=== PATIENT | female | born 1965 | race Two or more races ===

== ENCOUNTER 2020-08-02 09:28 | Outpatient (REF) | payer MEDICARE, MEDICAID, SELFPAY ==
[2020-08-02 10:10] LABS: Blood Urea Nitrogen 15 mg/dL (9-16); Estimated Glomerular Filt Rate > 60
== END 2020-08-02 09:29 | disposition home or self-care (01) ==
LOC: HO.MRI 09:28
PROVIDERS: Visit Provider Psychiatry & Neurology Neurology
DX: H46.9 Unspecified optic neuritis (principal)
CPT/HCPCS: 82565; 84520

== ENCOUNTER 2020-08-04 10:37 | Outpatient (REF) | payer MEDICARE, MEDICAID, SELFPAY ==
--- NOTE | 2020-08-04 10:36 | MR_ITS ---
EXAMINATION: MR BRAIN WITHOUT AND WITH CONTRAST CLINICAL INFORMATION: Optic neuropathy. COMPARISON: Head CT from 11/04/2019. TECHNIQUE: Multiplanar, multisequence imaging of the brain was performed before and after the intravenous administration of 10 mL of Gadavist. FINDINGS: No diffusion abnormalities are identified to suggest an acute or subacute infarct. The ventricles are normal in size. No mass effect or midline shift is seen. Mild to moderate chronic white matter microangiopathic changes noted. No extra-axial fluid collections are seen. The brainstem and cerebellum are normal. There is no abnormal parenchymal or leptomeningeal enhancement. The orbits and pituitary axis structures are grossly normal. The gradient refocused acquisition is normal. The craniovertebral junction, marrow signal, and midline structures are normal. The major intracranial flow voids at the level of the chitimacha of Hilario are preserved. The dural venous sinus flow voids are maintained. Moderate right-sided posterior ethmoid sinus mucosal disease. There is a trace amount of fluid in the left mastoid air cells. Nonenhancing 1 cm Tornwaldt cyst in the midline nasopharyngeal roof. MR/MR head/brain wo/w con IMPRESSION: Mild to moderate chronic white matter microangiopathic changes. No acute process. No abnormal enhancement.
== END 2020-08-04 10:38 | disposition home or self-care (01) ==
LOC: HO.MRI 10:37
PROVIDERS: PCP Internal Medicine Geriatric Medicine; Visit Provider Psychiatry & Neurology Neurology
DX: H46.9 Unspecified optic neuritis (principal)
CPT/HCPCS: 70553; A9585

== ENCOUNTER 2021-10-24 08:56 | Outpatient (REF) | payer MEDICARE, MEDICAID, SELFPAY ==
--- NOTE | ~2021-10-24 | XR_ITS ---
EXAMINATION: LUMBAR SPINE. LEFT SHOULDER. CLINICAL INFORMATION: Low back pain COMPARISON: None TECHNIQUE: Technique 6 views lumbar spine. 4 views left shoulder. FINDINGS: Lumbar spine: There is normal lumbar lordosis. The vertebral heights, alignment and disc heights are normal. No visible acute fracture, dislocation or subluxation seen. There is mild ventral spondylosis L3, L4 vertebra. No lytic or sclerotic process seen. On oblique views there is no pars defect or listhesis. The facet joints are symmetrical and normal. The SI joints are normal. Left shoulder: There is mild reduction in the glenohumeral joint space and AC joint space. No visible fracture or dislocation. No loose bodies. The soft tissues are normal. XR/XR shoulder LT min 2V IMPRESSION: Unremarkable lumbar spine exam. Mild degenerative changes suspected involving left shoulder joint. No visible acute fracture or dislocation seen.
--- NOTE | ~2021-10-24 | XR_ITS ---
EXAMINATION: LUMBAR SPINE. LEFT SHOULDER. CLINICAL INFORMATION: Low back pain COMPARISON: None TECHNIQUE: Technique 6 views lumbar spine. 4 views left shoulder. FINDINGS: Lumbar spine: There is normal lumbar lordosis. The vertebral heights, alignment and disc heights are normal. No visible acute fracture, dislocation or subluxation seen. There is mild ventral spondylosis L3, L4 vertebra. No lytic or sclerotic process seen. On oblique views there is no pars defect or listhesis. The facet joints are symmetrical and normal. The SI joints are normal. Left shoulder: There is mild reduction in the glenohumeral joint space and AC joint space. No visible fracture or dislocation. No loose bodies. The soft tissues are normal. XR/XR lumbar spine 4V min IMPRESSION: Unremarkable lumbar spine exam. Mild degenerative changes suspected involving left shoulder joint. No visible acute fracture or dislocation seen.
== END 2021-10-24 08:57 | disposition home or self-care (01) ==
LOC: HO.XRAY 08:56
PROVIDERS: PCP Internal Medicine Geriatric Medicine; Visit Provider Internal Medicine Geriatric Medicine
DX: M25.412 Effusion, left shoulder (principal); M54.50 Low back pain, unspecified
CPT/HCPCS: 72110; 73030

== ENCOUNTER 2021-11-08 12:40 | Outpatient (REF) | payer MEDICARE, MEDICAID, SELFPAY ==
--- NOTE | ~2021-11-08 | MR_ITS ---
EXAMINATION: MR SHOULDER WITHOUT CONTRAST, LEFT CLINICAL INFORMATION: Left shoulder pain and decreased range of motion for greater than 10 months. COMPARISON: Most recent left shoulder radiographs dated 10/24/2021. TECHNIQUE: Multisequence MR imaging of the left shoulder was obtained without contrast on a high-field strength scanner. FINDINGS: Evaluation limited secondary to patient motion. ROTATOR CUFF: Mild supraspinatus tendinosis with distal bursal surface fraying. Mild infraspinatus and subscapularis tendinosis. No measurable rotator cuff tendon tear. No muscle atrophy or fatty infiltration. BICEPS: Normal. CORACOACROMIAL ARCH: The undersurface of the acromion is curved with no subacromial spur. Moderate acromioclavicular osteoarthritis. Fluid and edema within the subacromial-subdeltoid bursa, consistent with mild bursitis. LABRUM/CAPSULE: No displaced labral tear. Intact joint capsule. GLENOHUMERAL JOINT/MARROW: Grossly intact articular cartilage. No evidence of acute osseous abnormality. MR/MR shoulder LT wo con IMPRESSION: 1. Mild supraspinatus tendinosis with distal bursal surface fraying. Mild infraspinatus and subscapularis tendinosis. No measurable or full-thickness rotator cuff tendon tear. 2. Moderate acromioclavicular osteoarthritis. 3. Mild subacromial-subdeltoid bursitis.
== END 2021-11-08 12:41 | disposition home or self-care (01) ==
LOC: HO.MRI 12:40
PROVIDERS: Visit Provider Internal Medicine Geriatric Medicine
DX: M25.512 Pain in left shoulder (principal)
CPT/HCPCS: 73221

== ENCOUNTER 2021-12-13 08:24 | Outpatient (REF) | payer MEDICARE, MEDICAID, SELFPAY ==
--- NOTE | ~2021-12-13 | MM_ITS ---
EXAMINATION: MM SCREENING DIGITAL BREAST TOMOSYNTHESIS, BILATERAL CLINICAL INFORMATION: Screening. Asymptomatic. Prior history right breast surgery 2018. The lifetime risk of breast cancer based on the Tyrer-Cuzick Model is 16%. COMPARISON: Mammography: 03/25/2019, 03/10/2019, 03/09/2018, 01/17/2017 TECHNIQUE: Digital breast tomosynthesis is performed in both the craniocaudal and mediolateral oblique views along with computer-aided detection (CAD). Synthesized 2D images are generated from the tomosynthesis. Additional bilateral CC views are provided. FINDINGS: There are scattered areas of fibroglandular density (ACR BI-RADS breast composition Category b). There is mild asymmetry of the breasts, right slightly larger, similar to prior studies. Breast parenchymal pattern borders on predominantly fatty. Background stromal and fibroglandular densities are stable. There is no interval mass or architectural abnormality. There are scattered round and punctate dermal calcifications again seen. No significant changes. MM/MM tomosynthesis screening BI IMPRESSION: No mammographic evidence of malignancy. ASSESSMENT: BI-RADS 2: Benign RECOMMENDATION: Routine annual mammography screening. This patient's information was entered into a reminder system with a target due date for their next mammogram.
== END 2021-12-13 08:25 | disposition home or self-care (01) ==
LOC: HO.MAMMO 08:24
PROVIDERS: Visit Provider Internal Medicine Geriatric Medicine
DX: Z12.31 Encounter for screening mammogram for malignant neoplasm of breast (principal)
CPT/HCPCS: 77063; 77067

== ENCOUNTER 2022-03-20 19:06 | Emergency (ER) | payer MEDICARE, MEDICAID, SELFPAY ==
[2022-03-20 19:09] VITALS: BP 154/83; PULSE 109; O2SAT 99
[2022-03-20 19:33] VITALS: BP 118/72; PULSE 98; RESP 18; TEMP 37.2; O2SAT 96; BMI 35.4
[2022-03-20 20:58] LABS: MANUAL DIFF FLAG NO
[2022-03-20 21:00] LABS: Basophils Percent Auto 0.3 % (0-2); Eosinophils Absolute Auto 0.2 X10*3/uL (0.0-0.4); Eosinophils Percent Auto 2.3 % (0-4); Hematocrit 41.8 % (37.0-47.0); Imm Gran Abs Auto 0.02 X10*3/uL (0.00-0.03); Imm Gran Pct Auto 0.2 % (0.0-0.4); Lymphocytes Absolute Auto 2.9 X10*3/uL (1.2-4.9); Lymphocytes Percent Auto 32.7 % (20-40); Mean Corpuscular HGB Conc 33.5 g/dl (31.0-35.0); Mean Corpuscular Hemoglobin 29.7 pg (27.0-33.0); Mean Corpuscular Volume 88.6 fL (80.0-98.0); Mean Platelet Volume 10.7 fL (9.4-12.3); Monocytes Absolute Auto 0.5 X10*3/uL (0.1-1.2); Monocytes Percent Auto 5.5 % (2-11); Neutrophils Absolute Auto 5.3 x10*3/uL (2.0-8.3); Platelet Count 217 X10*3/uL (160-400); Red Blood Count 4.72 X10*6/uL (4.20-5.50); Red Cell Distribution Width 12.3 % (11.0-16.0); White Blood Count 8.9 X10*3/uL (4.8-10.8)
[2022-03-20 21:23] LABS: Alanine Aminotransferase 22 U/L (0-31); Alkaline Phosphatase 124 U/L (39-117); Anion Gap 11 (12-20); Aspartate Amino Transferase 21 U/L (5-31); Bilirubin Direct 0.2 mg/dL (0.0-0.5); Bilirubin Total 0.4 mg/dL (0.0-1.0); Blood Urea Nitrogen 14 mg/dL (9-16); Calcium 9.3 mg/dL (8.4-10.2); Carbon Dioxide 29 mmol/L (22-29); Chloride 102 mmol/L (96-108); Creatinine Clr Calc Pharmacy 92.1; Estimated Glomerular Filt Rate > 60; Glucose Random 119 mg/dL (60-115); Lipase < 4 U/L (8-78); Sodium 138 mmol/L (135-145); Total Protein 7.5 g/dL (6.5-8.0)
== END 2022-03-21 01:15 | disposition left against medical advice (07) ==
LOC: HO.ED 03-21 01:09
PROVIDERS: Emergency Provider Emergency Medicine
DX: R11.2 Nausea with vomiting, unspecified (principal)
CPT/HCPCS: 36415; 80053; 82248; 83690; 85025; 99281; 99283

== ENCOUNTER 2022-03-21 10:22 | Emergency (ER) | payer MEDICARE, MEDICAID, SELFPAY ==
[2022-03-21 10:25] VITALS: BP 139/93; PULSE 100; RESP 18; TEMP 37.2; O2SAT 98; BMI 35.4
[2022-03-21 13:21] LABS: MANUAL DIFF FLAG NO
[2022-03-21 13:25] LABS: Basophils Absolute Auto 0.1 X10*3/uL (0.0-0.2); Basophils Percent Auto 0.6 % (0-2); Eosinophils Absolute Auto 0.2 X10*3/uL (0.0-0.4); Eosinophils Percent Auto 1.8 % (0-4); Hematocrit 43.3 % (37.0-47.0); Hemoglobin 14.4 g/dl (12.0-16.0); Imm Gran Abs Auto 0.02 X10*3/uL (0.00-0.03); Imm Gran Pct Auto 0.2 % (0.0-0.4); Lymphocytes Absolute Auto 2.6 X10*3/uL (1.2-4.9); Lymphocytes Percent Auto 30.4 % (20-40); Mean Corpuscular HGB Conc 33.3 g/dl (31.0-35.0); Mean Corpuscular Hemoglobin 29.5 pg (27.0-33.0); Mean Corpuscular Volume 88.7 fL (80.0-98.0); Mean Platelet Volume 10.8 fL (9.4-12.3); Monocytes Absolute Auto 0.5 X10*3/uL (0.1-1.2); Monocytes Percent Auto 5.3 % (2-11); Neutrophils Absolute Auto 5.4 x10*3/uL (2.0-8.3); Neutrophils Percent Auto 61.7 % (45-73); Platelet Count 228 X10*3/uL (160-400); Red Blood Count 4.88 X10*6/uL (4.20-5.50); Red Cell Distribution Width 12.4 % (11.0-16.0); White Blood Count 8.7 X10*3/uL (4.8-10.8)
[2022-03-21 13:42] LABS: Alanine Aminotransferase 19 U/L (0-31); Alkaline Phosphatase 128 U/L (39-117); Anion Gap 14 (12-20); Aspartate Amino Transferase 21 U/L (5-31); Bilirubin Total 0.5 mg/dL (0.0-1.0); Blood Urea Nitrogen 16 mg/dL (9-16); Calcium 9.3 mg/dL (8.4-10.2); Carbon Dioxide 24 mmol/L (22-29); Chloride 103 mmol/L (96-108); Creatinine Clr Calc Pharmacy 86.1; Estimated Glomerular Filt Rate > 60; Glucose Random 185 mg/dL (60-115); Potassium 4.5 mmol/L (3.3-5.1); Sodium 136 mmol/L (135-145); Total Protein 7.8 g/dL (6.5-8.0)
== END 2022-03-21 15:40 | disposition left against medical advice (07) ==
PROVIDERS: Emergency Provider Emergency Medicine; PCP Internal Medicine Geriatric Medicine
DX: R11.2 Nausea with vomiting, unspecified (principal)
CPT/HCPCS: 36415; 80053; 82248; 83690; 85025; 99281; 99283

== ENCOUNTER 2022-03-22 11:27 | Emergency (ER) | payer MEDICARE, MEDICAID, SELFPAY ==
[2022-03-22 11:45] VITALS: BP 130/66; PULSE 87; RESP 20; TEMP 37; O2SAT 96; BMI 35.4
[2022-03-22 13:53] LABS: MANUAL DIFF FLAG NO
[2022-03-22 13:55] LABS: Basophils Absolute Auto 0.1 X10*3/uL (0.0-0.2); Basophils Percent Auto 0.6 % (0-2); Eosinophils Absolute Auto 0.2 X10*3/uL (0.0-0.4); Hematocrit 42.6 % (37.0-47.0); Hemoglobin 14.5 g/dl (12.0-16.0); Imm Gran Abs Auto 0.02 X10*3/uL (0.00-0.03); Imm Gran Pct Auto 0.2 % (0.0-0.4); Lymphocytes Absolute Auto 2.7 X10*3/uL (1.2-4.9); Lymphocytes Percent Auto 32.6 % (20-40); Mean Corpuscular Hemoglobin 30.5 pg (27.0-33.0); Mean Corpuscular Volume 89.5 fL (80.0-98.0); Mean Platelet Volume 11.2 fL (9.4-12.3); Monocytes Absolute Auto 0.6 X10*3/uL (0.1-1.2); Monocytes Percent Auto 6.6 % (2-11); Neutrophils Absolute Auto 4.8 x10*3/uL (2.0-8.3); Platelet Count 213 X10*3/uL (160-400); Red Blood Count 4.76 X10*6/uL (4.20-5.50); Red Cell Distribution Width 12.1 % (11.0-16.0); White Blood Count 8.4 X10*3/uL (4.8-10.8)
[2022-03-22 14:15] LABS: Anion Gap 14 (12-20); Blood Urea Nitrogen 15 mg/dL (9-16); Calcium 8.9 mg/dL (8.4-10.2); Carbon Dioxide 25 mmol/L (22-29); Chloride 101 mmol/L (96-108); Creatinine Clr Calc Pharmacy 88.4; Estimated Glomerular Filt Rate > 60; Glucose Random 214 mg/dL (60-115); Potassium 4.4 mmol/L (3.3-5.1); Sodium 136 mmol/L (135-145)
[2022-03-22 16:49] LABS: Alanine Aminotransferase 22 U/L (0-31); Albumin Level 4.1 g/dL (3.5-5.0); Alkaline Phosphatase 132 U/L (39-117); Aspartate Amino Transferase 21 U/L (5-31); Bilirubin Direct 0.2 mg/dL (0.0-0.5); Bilirubin Total 0.6 mg/dL (0.0-1.0); Lipase < 4 U/L (8-78); Total Protein 7.7 g/dL (6.5-8.0)
== END 2022-03-22 20:03 | disposition left against medical advice (07) ==
PROVIDERS: Emergency Provider Emergency Medicine; PCP Internal Medicine Geriatric Medicine
DX: E86.0 Dehydration (principal); R11.10 Vomiting, unspecified
CPT/HCPCS: 36415; 80048; 80076; 83690; 85025; 99281; 99283

== ENCOUNTER 2023-04-22 10:49 | Outpatient (REF) | payer MEDICARE, MEDICAID, SELFPAY ==
--- NOTE | ~2023-04-22 | XR_ITS ---
EXAMINATION: XR ELBOW, RIGHT CLINICAL INFORMATION: Right elbow pain status post trauma on Friday COMPARISON: None available. TECHNIQUE: AP, lateral, and oblique views of the right elbow. FINDINGS: Mild spurring is seen off of the lateral margin of the coronoid process. Mild calcification is seen along the lateral margin of the joint. Possible small joint effusion. No overt acute fracture or dislocation. Mild soft tissue swelling. XR/XR elbow RT min 3V IMPRESSION: 1. Mild soft tissue swelling and possible small joint effusion. No overt acute fracture. 2. Mild degenerative changes as detailed above.
[2023-04-22 18:53] LABS: Influenza A PCR NEGATIVE (Negative); Influenza B PCR NEGATIVE (Negative); Resp Syncy Virus RNA Qual PCR NEGATIVE (Negative); SARS COV2 PCR INHOUSE NEGATIVE (Negative)
== END 2023-04-22 10:50 | disposition home or self-care (01) ==
LOC: HO.HHCX 10:49
PROVIDERS: Visit Provider Emergency Medicine
DX: R50.9 Fever, unspecified (principal); Z20.822 Contact with and (suspected) exposure to COVID-19; S59.901A Unspecified injury of right elbow, initial encounter
CPT/HCPCS: 0241U; 73080

== ENCOUNTER 2023-07-11 11:45 | Outpatient (REF) | payer MEDICARE, MEDICAID, SELFPAY ==
[2023-07-11 13:44] LABS: Alanine Aminotransferase 13 U/L (0-31); Albumin Level 3.8 g/dL (3.5-5.0); Alkaline Phosphatase 142 U/L (39-117); Anion Gap 11 (12-20); Aspartate Amino Transferase 19 U/L (5-31); Bilirubin Total 0.6 mg/dL (0.0-1.0); Blood Urea Nitrogen 10 mg/dL (9-16); Carbon Dioxide 29 mmol/L (22-29); Chloride 101 mmol/L (96-108); Cholesterol 160 mg/dL (<200); Estimated Glomerular Filt Rate > 60; Glucose Random 95 mg/dL (60-115); HDL Cholesterol 37 mg/dL (>40); LDL Cholesterol Calculated 105 mg/dL (<100); Sodium 137 mmol/L (135-145); Total Protein 7.9 g/dL (6.5-8.0); Triglycerides 90 mg/dL (<150)
[2023-07-11 14:09] LABS: Creatinine Urine 228.92 mg/dL; Microalbum/Creatinine Ratio Ur 47.6 ug/mg cr (<30)
[2023-07-11 14:36] LABS: H Pylori Breath Test Negative (Negative)
== END 2023-07-11 11:46 | disposition home or self-care (01) ==
LOC: HO.HHCL 11:45
PROVIDERS: Visit Provider Internal Medicine Geriatric Medicine
DX: E11.9 Type 2 diabetes mellitus without complications (principal); Z79.4 Long term (current) use of insulin; Z86.19 Personal history of other infectious and parasitic diseases
CPT/HCPCS: 36415; 80053; 80061; 82043; 82570; 83013

== ENCOUNTER 2023-07-28 11:51 | Outpatient (REF) | payer MEDICARE, MEDICAID, SELFPAY ==
[2023-07-28 13:50] LABS: Estimated Average Glucose 194 mg/dL; Hemoglobin A1c % 8.4 % (<6.0)
== END 2023-07-28 11:52 | disposition home or self-care (01) ==
LOC: HO.HHCL 11:51
PROVIDERS: Visit Provider Internal Medicine Geriatric Medicine
DX: E11.69 Type 2 diabetes mellitus with other specified complication (principal); Z79.4 Long term (current) use of insulin
CPT/HCPCS: 36415; 83036

== ENCOUNTER 2023-11-18 12:45 | Outpatient (AMB) | payer MEDICARE, MEDICAID, SELFPAY ==
[2023-11-18 13:04] VITALS: BP 136/80; PULSE 74; BMI 35.1
--- NOTE | 2023-11-18 13:04 | MHC.OFFVIS ---
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, chest pain Intake Note: New patient dx HTN c/o chest pain off an on since Nov Director Graphics Required: No Allergies naproxen [NAPROXEN] Allergy (Intermediate, Unverified 07/28/23 14:03) SWELLING,RASH, rash, rash Medication List - Last Reconciled 11/18/23 by Ab Todd MD aspirin 81 mg PO DAILY atorvastatin 40 mg PO DAILY bupropion HCl 300 mg PO DAILY clonazepam 1 mg PO TID PRN dulaglutide (Trulicity) mg subcut gabapentin 800 mg PO TID ibuprofen 600 mg PO BID PRN insulin aspart U-100 (Novolog FlexPen U-100 Insulin aspart) subcut insulin degludec (Tresiba FlexTouch U-200 insulin) units subcut insulin glargine (Lantus Solostar U-100 Insulin) units subcut ipratropium-albuterol 20-100 mcg/actuation (Combivent Respimat) 1 puff inhalation QID losartan 50 mg PO DAILY nicotine (polacrilex) 2 mg PO PRN zolpidem 10 mg PO BEDTIME PRN HPI HPI Comments History of Present Illness Details Thank you for referring remote in cardiology consultation today for management of cardiovascular risk factors and chest discomfort. She is a 58-year-old female with prior history of diabetes and diabetic neuropathy, hyperlipidemia, COPD chronic smoking issue. Since July she started noticing elevated blood pressure. She 1 time ended up coming to [facility] with symptoms of headache, diaphoresis and chest pressure and was noted to have markedly elevated blood pressure at 200 systolic. She was then observed at [facility] and till the blood pressure got better. Since then she has been tried on lisinopril therapy but did not affect blood pressure. 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 She says she walks a lot and occasionally when she has very long walk she would get chest pain. Also she would get chest pressure/tightness when her blood pressure is elevated. She has somewhat intolerance to medications. She unfortunately continues to smoke. Denies any prolonged palpitation irregular heartbeat. No lightheadedness, loss of consciousness. She does have symptoms of skipped heartbeats mostly at nighttime when she is resting. [facility] Surgical History H/O cervical spine surgery H/O colonoscopy H/O esophagogastroduodenoscopy Family History Father No problems noted. Mother CAD (coronary artery disease) CHF (congestive heart failure) Social History Patient Tobacco Use Status: Current everyday Tobacco user Review of Systems Const Denies chills, Denies daytime sleepiness, Denies fatigue, Denies fever(s), Denies frequent falls, Denies poor appetite, Denies snoring, Denies stops breathing during sleep, Denies weakness, Denies weight gain and Denies weight loss Eyes Denies loss of vision ENT Denies dizziness and Denies hearing loss Card Denies chest pain, Denies claudication, Denies leg edema, Denies lightheadedness, Denies palpitations, Denies dyspnea, Denies dyspnea on exertion and Denies orthopnea Resp Denies cough, Denies excessive phlegm production, Denies dyspnea, Denies dyspnea on exertion, Denies snoring and Denies wheezing GI Denies abdominal pain, Denies hematochezia, Denies change in bowel habits, Denies nausea and Denies vomiting Denies urinary frequency and Denies dysuria Musc Denies arthralgias, Denies muscle weakness, Denies numbness and Denies other (frequent falls) Skin/Breast Denies nail changes and Denies rash Neuro Denies Abnormal speech present, Denies dizziness, Denies frequent falls, Denies loss of vision, Denies memory loss, Denies numbness and Denies weakness Psych Denies depression and Denies memory loss Endo Denies fatigue and Denies palpitations Julian/Lymph Reports easy bruising and Reports other (anemia) Aller/Immun Denies wheezing Physical Exam Vital Signs: Last Vital Signs Pulse 74 11/18/23 13:04 BP 136/80 11/18/23 13:04 BMI result Body Mass Index 35.1 Const General: cooperative, comfortable, no acute distress, alert and awake Nutritional Appearance: obese Orientation/consciousness: patient oriented x3 Limitations: no limitations HEENT Head: Yes normocephalic and Yes atraumatic Neck Neck: Yes trachea midline, Yes supple and Yes no JVD Carotids: no bruits Resp Effort & Inspection: normal respiratory effort Auscultation: clear to auscultation bilaterally Cardio Jugular venous distension: no JVD Palpation: normal PMI Rate: regular rate Rhythm: regular rhythm Heart sounds: S1 normal heart sound present, S2 normal heart sound present, no click, no gallops, no murmurs and no rubs GI Auscultation: normal bowel sounds Skin General skin exam: no rashes or lesions noted Neuro General: patient oriented x3 and no focal motor deficits Speech: No Abnormal speech present Extrem General: Yes no clubbing, cyanosis or edema Office Procedures EKG Details: EKG shows normal sinus rhythm with poor R-wave progression most likely due to lead placement [id number], Complete Assessment & Plan Assessment & Plan (1) Chest pain: Code(s): R07.9 - Chest pain, unspecified Plan: Patient with episode of chest discomfort in the setting of elevated blood pressure. This could be just related subendocardial ischemia related to elevated blood pressure and/or given her multiple risk factors including premature coronary artery disease in her mother, hypertension, diabetes, hyperlipidemia smoking high likelihood of underlying obstructive coronary artery disease myocardial ischemia. This needs to be evaluated for. Will suggest exercise myocardial perfusion imaging to evaluate for the same. Further treatment based on the findings. Will also suggest echocardiogram to evaluate LV systolic and diastolic function to evaluate for hypertensive heart disease. She is having symptoms of intermittent palpitation which has suggestive PVCs although atrial fibrillation can not be ruled out. Will suggest a 7 day Holter monitor to further assess for the same. Meanwhile given her multiple risk factors I have strongly suggested her to abstain from smoking. She says she is trying. We discussed various strategies. She will try to participate in the same. She has not had adequate blood pressure control with still having elevated blood pressure in the morning time. I have advised to increase losartan to 50 mg b.i.d.. Advised to monitor blood pressure at home maintain a log. Stress mitigation strategies were discussed. Low-salt diet was discussed. Target goal blood pressure less than 130/84. Continue aggressive management diabetes and compliance with medication was discussed. Target goal hemoglobin A1c less than 7%. Target goal LDL less than 70 mg/dL and continue high-intensity statin therapy. Advised lipid panel in near future. Will follow up in the clinic after above-mentioned test. Thank you for allowing me to partake in the care Medications: New losartan 50 mg PO BID 60 tabs 5RF Coding Level of Care Code New Pt Level 4 (19186) Diagnoses Chest pain R07.9 CPT Codes EKG - CPT: 50074-[id number], Complete ([id number])
== END 2023-11-18 13:39 | disposition home or self-care (01) ==
PROVIDERS: PCP Internal Medicine Geriatric Medicine; Visit Provider Internal Medicine Cardiovascular Disease
DX: R07.9 Chest pain, unspecified (principal)
CPT/HCPCS: 93010; 99204

== ENCOUNTER → 2023-11-18 12:45 | Outpatient (BNVA) | payer MEDICARE, MEDICAID, SELFPAY | PROVIDERS: PCP Internal Medicine Geriatric Medicine; Visit Provider Internal Medicine Cardiovascular Disease | DX: R07.9 Chest pain, unspecified (principal); I10 Essential (primary) hypertension; R94.31 Abnormal electrocardiogram [ECG] [EKG] | CPT/HCPCS: 93005; 99202 ==

== ENCOUNTER → 2024-01-05 09:46 | Outpatient (REF) | payer MEDICARE, MEDICAID, SELFPAY | LOC: HO.CARD 09:46 | PROVIDERS: PCP Internal Medicine Geriatric Medicine; Visit Provider Internal Medicine Cardiovascular Disease | DX: Z13.89 Encounter for screening for other disorder (principal) ==

== ENCOUNTER → 2024-03-12 08:27 | Outpatient (REF) | payer MEDICARE, MEDICAID, SELFPAY ==
--- NOTE | ~2024-03-12 | NM_ITS ---
EXERCISE MYOCARDIAL PERFUSION STUDY INDICATION: Chest pain TECHNIQUE: The patient was brought in for an exercise perfusion study on 03/12/2024. Patient performed exercise as per Kaiden protocol and was injected 30 mCi of sestamibi once target heart rate was achieved. Images were obtained using the SPECT gamma camera interlaced with the gating device. Images were obtained in supine position. Resting perfusion study was performed on 03/18/2024. Patient was administered 30 mCi of sestamibi intravenously at rest. Images were then obtained in supine position. Images were processed with the software and compared side to side in short axis, horizontal long axis and vertical long axis views. Total DLP 104mGy-cm. FINDINGS: Raw images were reviewed. The stress perfusion study showed no significant perfusion abnormality. Both uncorrected as well as CT attenuation corrected images were reviewed. The gated study shows normal LV systolic function with calculated LVEF of 70%. LV cavity is normal in size. The gated study shows normal wall thickening and contraction of segments. Resting study shows no significant perfusion abnormality. Gating at rest reveals normal wall motion with ejection fraction at 72%. The findings are consistent with no clear reversible or fixed perfusion abnormality. PR/PR cardiolite stress test IMPRESSION: 1. Myocardial perfusion imaging study shows normal myocardial perfusion. 2. Gated LVEF is 70% during stress and 72% during rest. 3. Transient ischemic dilatation not present. EKG component of the test reported separately.
--- NOTE | 2024-03-12 08:32 | CA_ITS ---
Transthoracic Echocardiogram Patient (Last, First, Middle): Rayna Cavazos, Gender: Female Date of : 1965 Age: 58 Procedure Date: 03/12/2024 Procedure Type: Transthoracic Echocardiogram Location: OP Height: 160.02 cm Weight: 95.26 kg BSA: 1.97 m2 Heart Rate: 69 bpm BP: 130 / 60 mmHg Nail Kegger: RICCI Referring MD: Ab Todd MD Symptoms: R07.9 - Chest pain, unspecified Study Quality: Adequate ECG Rhythm: Sinus Conclusions: - Normal left ventricular size and systolic function. There is mildly increased left ventricular wall thickness. The visually estimated ejection fraction is between 60-65%. - The basal inferior segment is hypokinetic. - Normal right ventricular cavity size and systolic function. - Normal global longitudinal strain. Findings Left Ventricle Normal left ventricular size and systolic function. There is mildly increased left ventricular wall thickness. The visually estimated ejection fraction is between 60-65%. There is evidence of regional wall motion abnormalities. Diastolic function is normal for age. Wall Motion Rest Echo Findings The basal inferior segment is hypokinetic. Right Ventricle Normal right ventricular cavity size and systolic function. Atria The left atrium is normal in size. The right atrium is normal in size. Aortic Valve There is a normal trileaflet aortic valve. There is no aortic valve stenosis. There is no aortic valve regurgitation. Mitral Valve Normal mitral valve structure and function. There is no mitral valve regurgitation. There is no mitral valve stenosis. Pulmonic Valve The pulmonic valve is likely normal. Tricuspid Valve Normal tricuspid valve structure and function. There is no tricuspid valve regurgitation. Normal right atrial pressure. There is no evidence of pulmonary hypertension. Great Vessels All visible segments of the aorta are normal in size. The visualized portions of the pulmonary artery and branches are normal. Venous The inferior vena cava is normal in size and collapses greater than 50% with inspiration. Pericardium/Pleural There is no evidence of pericardial effusion. Prior Study Comparison No prior study available for comparison. Measurements 2D Linear Measurements IVSd: 1.10 0.6-0.9/0.6-1.0 cm LVIDd: 3.59 3.9-5.3/4.2-5.9 cm LVIDd Index: 1.82 2.4-3.2/2.2-3.1 cm/m2 LVIDs: 1.97 2.0-3.6 cm LVPWd: 1.12 0.7-1.1 cm LA Diam: 3.90 2.7-3.8/3.0-4.0 cm LAIDs Index: 1.98 1.5-2.3 cm/m2 LV Mass: 155.85 67-162/88-224 g LV Mass Index: 79.11 43-95/49-115 g/m2 LVOT Diam: 2.00 3.0+(-)1.3 cm 2D Systolic Function EF 4C: 68.50 >55% EF 2C: 57.20 >55% EF BiP: 64.80 >55% Mitral Valve MV Pk E: 1.03 MV PK A: 1.17 MV Decel Time: 292.00 E/A: 0.90 E'Lateral: 10.10 E'Medial: 7.94 E/E' Med: 13.00 E/E' Lat: 10.20 PHT: 86.00 MVA PHT: 2.56 Decel [place]: 3.52 Aortic Valve AoV Pk Luis: 1.41 AoV Mn Luis: 1.02 AoV VTI: 0.32 AoV Pk Grad: 8.00 Aov Mn Grad: 5.00 CANDIDA Cont.VTI: 2.71 LVOT LVOT Pk Luis: 1.07 LVOT Mn Luis: 0.80 LVOT VTI: 0.28 LVOT Pk Grad: 5.00 LVOT Mn Grad: 3.00 LVOT Diam: 2.00 LVOT Area: 3.14 Diastolic Function MV Pk E: 1.03 MV Pk A: 1.17 E/A: 0.90 E'Medial: 7.94 E/E' Med: 13.00 E' Laterial: 10.10 E/E' Lat: 10.20 Right Ventricle TAPSE (mm): 23.90 TVS' Luis: 12.40 Great Vessels Aorta Sinus of Valsalva: 3.30 2.0-3.5 cm Ao Asc: 3.10 2.1-3.4 cm Pulmonary Valve PV Pk Luis: 0.92 Peak PV Grad: 3.00 Updated in Other Vendor System with Status of Final Boogie Pierce MD electronically signed on 03/14/2024 12:46:38 PM with status of Final
--- NOTE | 2024-03-12 08:32 | HM_ITS ---
Conclusion: 1. Patient was monitored for total period of 3 days 2. Baseline was normal sinus rhythm with average heart of 85 beats per minute 3. Rare PACs and PVCs noted 4. One wide complex tachycardia run of 19 beats at 138 beats per minute noted most suggestive of nonsustained VT 5. Patient did not alyssia the counter but reported 1 event in the diary after the wait time MTDD
--- NOTE | 2024-03-12 08:32 | CA_ITS ---
Acquisition Time: 2024-03-12 09:36:22 Total Exercise Time: 00:05:30 Test Indications: Abnormal ECG CP Medications: SEE H Protocol: ASHLEY Max HR: 142 BPM 88% of Pred: 161 BPM Max BP: 164/068 mmHG Max Work Load: 7.0 METS Exercise stress test exercise 5 min 30 sec of Ashley protocol achieving 87% MPHR, without chest discomfort, with mild to moderate SOB, with isolated PVCs, with normotensive response to exercise, with out EKG changes.Breathing returned to normal with rest. Nuclear images pending. Test reviewed with Dr. Pierce Referred By: Ab Todd Overread By: Caitlin Gorman
== END ==
LOC: HO.CARD 08:27
PROVIDERS: PCP Internal Medicine Geriatric Medicine; Visit Provider Internal Medicine Cardiovascular Disease
DX: R07.9 Chest pain, unspecified (principal)
CPT/HCPCS: 78452; 93017; 93242; 93306; A9500

== ENCOUNTER → 2024-03-12 08:32 | Outpatient (BNV) | payer MEDICARE, MEDICAID, SELFPAY | PROVIDERS: PCP Internal Medicine Geriatric Medicine; Visit Provider Nurse Practitioner | DX: I49.1 Atrial premature depolarization (principal); I49.3 Ventricular premature depolarization | CPT/HCPCS: 78452; 93016; 93018; 93244; 93350 ==

== ENCOUNTER 2024-04-06 11:35 | Outpatient (AMB) | payer MEDICARE, MEDICAID, SELFPAY ==
--- NOTE | 2024-04-06 11:49 | A.OFFVIS_ITS ---
Vital Signs 04/06/24 11:50 Height 5 ft 3 in Weight 207 lb 3.752 oz BMI 36.7 BP 153/65 H Blood Pressure Location Lt brachial Position Sitting Pulse 77 Intake Visit Reasons: pre colonoscopy Intake Note: Rayna presents in the office as a colonoscopy screening. CC: Just due for a colonoscopy - no concerns. Installation Supervisor Required: No Allergies naproxen [NAPROXEN] Allergy (Intermediate, Unverified 04/06/24 11:51) SWELLING,RASH, rash, rash HPI HPI pre colonoscopy: Details: 58 year old? female here today for pre colonoscopy screening.? Patient was sent to us by his/her PCP.? Last colonoscopy was in 2014 and it was normal. Patient denies any gastrointestinal symptoms in the past or at present.? Denies any per anabel or family history of gastrointestinal disease or CRC.? Denies history of difficulty with sedation or anesthesia in the past.? Negative for history of sleep apnea.? Denies any history of cardiac, renal, pulmonary, or hepatic disease.?? No history of infectious? diseases like hepatitis A, B, C, HIV or tuberculosis.? Patient is on low-dose aspirin. Patient was evaluated by director quality systems for atypical chest pain with normal stress test as well as normal echo. Patient has not follow-up with director quality systems but was called and told that her stress test was normal. [facility] Surgical History H/O cervical spine surgery H/O colonoscopy H/O esophagogastroduodenoscopy Family History Father No problems noted. Mother CAD (coronary artery disease) CHF (congestive heart failure) Social History Patient Tobacco Use Status: Current everyday Tobacco user Review of Systems Const Denies weight gain and Denies weight loss ENT Reports no additional complaints, Denies dysphagia and Denies odynophagia Card Reports no additional complaints Resp Reports no additional complaints GI Denies abdominal pain, Denies belching, Denies melena, Denies bloating, Denies change in bowel habits, Denies dysphagia, Denies excessive flatus, Denies dyspepsia, Denies heartburn, Denies diarrhea, Denies loose stools, Denies nausea, Denies odynophagia and Denies vomiting Musc Reports no additional complaints Neuro Reports no additional complaints Psych Reports no additional complaints Endo Reports no additional complaints Physical Exam Vital Signs: Last Vital Signs Pulse 77 04/06/24 11:50 BP 153/65 H 04/06/24 11:50 BMI result Body Mass Index 36.7 Const General: healthy appearing and no acute distress Nutritional Appearance: obese Orientation/consciousness: patient oriented x3 Resp Effort & Inspection: normal respiratory effort, able to speak in complete sentences, no tracheal deviation and symmetric chest movement Auscultation: clear to auscultation bilaterally Cardio Rate: regular rate GI Inspection: Yes normal to inspection, No distended and Yes obesity Palpation (GI): Soft to palpation, not firm, nontender and No hepatosplenomegaly present Auscultation: normal bowel sounds General: Yes no CVA tenderness Back/Spine/Pelvis Back: no CVA tenderness Skin General skin exam: elasticity normal, turgor normal and dry skin Neuro General: patient oriented x3 Psych Appearance: grossly normal Mental Status: mental status grossly normal Assessment & Plan Assessment & Plan (1) Screen for colon cancer: Code(s): Z12.11 - Encounter for screening for malignant neoplasm of colon Plan Patient denies any GI, cardiac or respiratory symptoms.? As mentioned above in HPI patient was evaluated for atypical chest pain. Normal stress test and normal echocardiogram. Denies any issues with anesthesia in the past.? Denies any history of sleep apnea.? No history infectious diseases in the past or present.? Patient is on low-dose aspirin. No family or personal history of colon cancer.? Patient denies melena, hematochezia, unintentional weight loss or ribbon like stools.? Discussed at length the pre-procedure,? prep, diet & medications as well as what to expect prior, during and after the procedure.?? Stressed the importance of good bowel prep.? Recommended the use of Vaseline or Calmoseptine OTC & baby wipes with bowel movements to promote comfort.? ?Patient verbalizes understanding and agrees to plan of care.? She was given the opportunity to ask questions and all questions answered.? We will see her after the procedure.? Medications: New polyethylene glycol 3350 (Miralax) As directed by gastroenterology department at [facility] 238 grams PO ONCE 238 grams 0RF Z12.11 - Encounter for screening for malignant neoplasm of colon bisacodyl (Dulcolax (bisacodyl)) take 4 tabs at noon the day before your colonoscopy 20 mg (4 x 5 mg) PO ONCE 1 day 4 tabs 0RF Z12.11 - Encounter for screening for malignant neoplasm of colon Coding Level of Care Code New Pt Level 3 (96460) Diagnoses Screen for colon cancer Z12.11 Time Spent (min) 40 Comment 30 minutes spent with patient and additional 10 minutes spent reviewing her records
[2024-04-06 11:50] VITALS: BP 153/65; PULSE 77; BMI 36.7
== END 2024-04-06 12:39 | disposition home or self-care (01) ==
PROVIDERS: PCP Internal Medicine Geriatric Medicine; Visit Provider Nurse Practitioner Family
DX: Z01.818 Encounter for other preprocedural examination (principal); Z12.11 Encounter for screening for malignant neoplasm of colon
CPT/HCPCS: 99024

== ENCOUNTER → 2024-04-06 11:35 | Outpatient (BNVA) | payer MEDICARE, MEDICAID, SELFPAY | PROVIDERS: PCP Internal Medicine Geriatric Medicine; Visit Provider Nurse Practitioner Family | DX: Z01.818 Encounter for other preprocedural examination (principal) | CPT/HCPCS: 99212 ==

== ENCOUNTER 2024-04-20 13:03 | Outpatient (AMB) | payer MEDICARE, MEDICAID, SELFPAY ==
[2024-04-20 13:40] VITALS: BP 140/70; PULSE 65; BMI 37.6
--- NOTE | 2024-04-20 13:40 | A.OFFVIS_ITS ---
Vital Signs 04/20/24 13:40 Height 5 ft 3 in Weight 212 lb 8.41 oz BMI 37.6 BP 140/70 H Blood Pressure Location Rt brachial Position Sitting Pulse 65 Pulse Source Pulse Oximeter Intake Visit Reasons: f/u after testing/ discuss metoprolol Ui Ux Web Developer Required: No Accompanied by: Self / Same As Patient Allergies naproxen [NAPROXEN] Allergy (Intermediate, Unverified 04/06/24 11:51) SWELLING,RASH, rash, rash Medication List - Last Reconciled 04/20/24 by Ab Todd MD aspirin 81 mg PO DAILY atorvastatin 40 mg PO DAILY bisacodyl (Dulcolax (bisacodyl)) 20 mg (4 x 5 mg) PO ONCE 1 day bupropion HCl XL 300 mg PO DAILY clonazepam 1 mg PO TID PRN dulaglutide (Trulicity) mg subcut gabapentin 800 mg PO TID ibuprofen 600 mg PO BID PRN insulin aspart U-100 (Novolog FlexPen U-100 Insulin aspart) subcut insulin degludec (Tresiba FlexTouch U-200 insulin) units subcut insulin glargine (Lantus Solostar U-100 Insulin) units subcut ipratropium-albuterol 20-100 mcg/actuation (Combivent Respimat) 1 puff inhalation QID losartan 50 mg PO BID metoprolol succinate ER (Toprol XL) 25 mg PO DAILY polyethylene glycol 3350 (Miralax) 238 grams PO ONCE zolpidem 10 mg PO BEDTIME PRN HPI Comments Details: Rayna comes for follow-up. She denies any exertional chest pain or shortness of breath. Unfortunately she continues smoke but is trying to quit. Hemoglobin A1c also still is elevated uncontrolled diabetes. She also sometimes forgets to take her blood pressure medicines. Importance of compliance with medication was discussed. Occasionally has symptoms of palpitations. She said metoprolol makes her feel a little tired. She occasionally forgets to take it. Denies any lightheadedness, syncope. Blood pressure on today's exam is slightly elevated. [facility] Surgical History H/O cervical spine surgery H/O colonoscopy H/O esophagogastroduodenoscopy Family History Father No problems noted. Mother CAD (coronary artery disease) CHF (congestive heart failure) Social History Patient Tobacco Use Status: Current everyday Tobacco user Review of Systems Const Denies chills, Denies fatigue, Denies fever(s), Denies frequent falls, Denies weakness, Denies weight gain and Denies weight loss ENT Denies dizziness Card Denies chest pain, Denies leg edema, Denies lightheadedness, Denies palpitations, Denies dyspnea and Denies dyspnea on exertion Resp Denies cough, Denies dyspnea and Denies dyspnea on exertion GI Denies hematochezia Musc Denies abnormal gait, Denies muscle weakness, Denies numbness, Denies radiating pain into limb and Denies tingling Neuro Denies Abnormal speech present, Denies abnormal gait, Denies dizziness, Denies frequent falls, Denies numbness, Denies tingling and Denies weakness Endo Denies fatigue and Denies palpitations Physical Exam Vital Signs: Last Vital Signs Pulse 65 04/20/24 13:40 BP 140/70 H 04/20/24 13:40 BMI result Body Mass Index 37.6 Const General: cooperative, comfortable, no acute distress, alert and awake Nutritional Appearance: obese Orientation/consciousness: patient oriented x3 Limitations: no limitations HEENT Head: Yes normocephalic and Yes atraumatic Neck Neck: Yes trachea midline, Yes supple and Yes no JVD Carotids: no bruits Resp Effort & Inspection: normal respiratory effort Auscultation: clear to auscultation bilaterally Cardio Jugular venous distension: no JVD Palpation: normal PMI Rate: regular rate Rhythm: regular rhythm Heart sounds: S1 normal heart sound present, S2 normal heart sound present, no click, no gallops, no murmurs and no rubs GI Auscultation: normal bowel sounds Skin General skin exam: no rashes or lesions noted Neuro General: patient oriented x3 and no focal motor deficits Speech: No Abnormal speech present Extrem General: Yes no clubbing, cyanosis or edema Assessment & Plan Assessment & Plan (1) Chest pain: Code(s): R07.9 - Chest pain, unspecified Category: Medical Plan: Chest pain with multiple risk factors with negative myocardial perfusion im aging. Good prognosis with this was discussed although given uncontrolled risk factors high risk of cardiovascular events was discussed. She is advised that if she ever gets significant chest pain unrelieved still should seek emergency care. Generally continue aggressive risk factor modification. Importance of good blood pressure control was discussed. She understands. Complete smoking cessation advised. Continue aggressive management diabetes with goal hemoglobin A1c less than 7%. She is working on it. Aggressive lipid modification goal LDL less than 70 mg/dL needs to be pursued. Encouraged to increase activity level. Will follow up in the clinic if need be. Thank you for allowing me to partake in his care Coding Level of Care Code Est Pt Level 3 (87493) Diagnoses Chest pain R07.9
== END 2024-04-20 14:05 | disposition home or self-care (01) ==
PROVIDERS: PCP Internal Medicine Geriatric Medicine; Visit Provider Internal Medicine Cardiovascular Disease
DX: R07.9 Chest pain, unspecified (principal)
CPT/HCPCS: 99213

== ENCOUNTER → 2024-04-20 13:03 | Outpatient (BNVA) | payer MEDICARE, MEDICAID, SELFPAY | PROVIDERS: PCP Internal Medicine Geriatric Medicine; Visit Provider Internal Medicine Cardiovascular Disease | DX: R00.2 Palpitations (principal); R07.9 Chest pain, unspecified | CPT/HCPCS: 99212 ==

== ENCOUNTER 2025-05-17 11:33 | Outpatient (REF) | payer MEDICARE, MEDICAID, SELFPAY ==
[2025-05-17 13:20] LABS: MANUAL DIFF FLAG NO
[2025-05-17 13:22] LABS: Hematocrit 40.5 % (37.0-47.0); Hemoglobin 13.7 g/dl (12.0-16.0); Imm Gran Abs Auto 0.03 X10*3/uL (0.00-0.03); Imm Gran Pct Auto 0.3 % (0.0-0.4); Lymphocytes Absolute Auto 2.5 X10*3/uL (1.2-4.9); Mean Corpuscular HGB Conc 33.8 g/dl (31.0-35.0); Mean Corpuscular Hemoglobin 30.0 pg (27.0-33.0); Mean Corpuscular Volume 88.8 fL (80.0-98.0); NRBC Abs Auto 0.000 X10*3/uL (0.0-0.012); NRBC Pct Auto 0.0 /100WBC (0.0-0.2); Platelet Count 249 X10*3/uL (160-400); Red Blood Count 4.56 X10*6/uL (4.20-5.50); White Blood Count 9.7 X10*3/uL (4.8-10.8)
[2025-05-17 14:13] LABS: Alanine Aminotransferase 16 U/L (0-31); Albumin Level 3.9 g/dL (3.5-5.0); Alkaline Phosphatase 160 U/L (39-117); Anion Gap 10 (12-20); Aspartate Amino Transferase 23 U/L (5-31); Blood Urea Nitrogen 18 mg/dL (9-16); Calcium 8.8 mg/dL (8.4-10.2); Carbon Dioxide 28 mmol/L (22-29); Chloride 102 mmol/L (96-108); Cholesterol 139 mg/dL (<200); Estimated Glomerular Filt Rate > 60; HDL Cholesterol 29 mg/dL (>40); Potassium 4.4 mmol/L (3.3-5.1); Sodium 136 mmol/L (135-145); Total Protein 7.3 g/dL (6.5-8.0); Triglycerides 133 mg/dL (<150)
--- OUTSIDE RECORDS SUMMARY | 2025-05-17 15:43 | XMS_ITS | Encounter Summary ---
Author Organization [employer] Address [address] [facility] 7t [place] [address] Care Team Providers Care Tone Regulator Name Role Phone Name, Beltran LEACH Primary Care Provider [phone] Reason for Visit * Reason Onset Date Comments Med Refill 01/03/2023 Encounter Details Date Type Department Care Team ([facility] st Contact Info) Description 01/03/2023 Telephone [facility] MEDICINE [address] [place] [address] [phone] Name, MD Beltran [address] [place] [address] Med Refill Social History Tobacco Use Types Packs/Day Years Used Date Smoking Tobacco: Never Assessed Comments Unknown Sex and Gender Information Value Date Recorded Sex Assigned at Female 07/01/2022 10:15 AM EDT Legal Sex Female 10:15 AM EDT Gender Identity Female 07/01/2022 10:15 AM EDT Sexual Orientation Don't know 07/01/2022 10 :15 AM EDT documented as of this encounter Miscellaneous Notes * Telephone Encounter - Kiya Perez LPN - 01/03/2023 1:02 PM EDT Medication was sent to [facility] on 12/20/22 with 5 refills. * Telephone Encounter - Sabrina Buchanan - 01/03/2023 11:52 AM EDT Tc from pt requesting med refill for medication insulin degludec (Tresiba) 100 UNIT/ML injection. documented in this encounter Plan of Treatment Upcoming Encounters Date Type Department Care Team (Late st Contact Info) Description 05/18/2025 9:30 AM EDT Office Visit [facility] MEDICINE [address] [place] [address] Name, MD Beltran [address] [place] [phone] documented as of this encounter Visit Diagnoses Not on filedocumented in this encounter Care Teams Tone Regulator Relationship Specialty Start Date End Date Name, MD Beltran [address] [place] [phone] PCP - General Family Medicine 12/05/15 documented as of this encounter
--- OUTSIDE RECORDS SUMMARY | 2025-05-17 15:43 | XMS_ITS | Encounter Summary ---
Author Organization [employer] Address [address] [place] [address] 7 [place] [address] Care Team Providers Care Licensed Psychologist Manager Name Role Phone NameBeltran MD Primary Care Provider [phone] Encounter Details Date Type Department Care Team (Late Contact Info) Description 01/24/2023 [facility] Health Information Management [address] [place] [address] Beltran Ramirez MD [address] [place] [phone] Social History Tobacco Use Types Packs/Day Years Used Date Smoking Tobacco: Never Assessed Comments Unknown Sex and Gender Information Value Date Recorded Sex Assigned at Female 07/01/2022 10:15 AM EDT Legal Sex Female 10:15 AM EDT Gender Identity Female 07/01/2022 10:15 AM EDT Sexual Orientation Don't know 07/01/2022 10 :15 AM EDT documented as of this encounter Plan of Treatment Upcoming Encounters Date Type Department Care Team (Late Contact Info) Description 05/18/2025 9:30 AM EDT Office Visit [facility] MEDICINE [address] [place] [address] Beltran Ramirez MD [address] [place] [address] documented as of this encounter Visit Diagnoses Not on filedocumented in this encounter Care Teams Licensed Psychologist Manager Relationship Specialty Start Date End Date Beltran Ramirez MD [address] [place] [address] [phone] PCP - General Family Medicine 12/05/15 documented as of this encounter
--- OUTSIDE RECORDS SUMMARY | 2025-05-17 15:43 | XMS_ITS | Encounter Summary ---
Author Organization [employer] Address [address] [facility] 7t [place] [address] Care Team Providers Care Cultured Marble Products Maker Name Role Phone Name, Beltran LEACH Primary Care Provider [phone] Encounter Details Date Type Department Care Team (Late Contact Info) Description 02/11/2023 Abstract [facility] MEDICINE [address] [place] [phone] Beltran Ramirez MD [address] [place] [phone] Social History Tobacco Use Types Packs/Day Years [...] Description 05/18/2025 9:30 AM EDT Office Visit [facility] MEDICINE [address] [place] [phone] Beltran Ramirez MD [address] [place] [phone] documented as of this encounter Visit Diagnoses Not on filedocumented in this encounter Care Teams Cultured Marble Products Maker Relationship Specialty Start Date End Date Beltran Ramirez MD [address] [place] [phone] PCP - General Family Medicine 12/05/15 documented as of this encounter
--- OUTSIDE RECORDS SUMMARY | 2025-05-17 15:43 | XMS_ITS | Encounter Summary ---
Author Organization [employer] Address [address] [facility] 7t [place] [address] Care Team Providers Care Home School Liaison Officer Name Role Phone Name, Beltran LEACH Primary Care Provider [phone] Reason for Visit * Reason Comments Med Refill Encounter Details Date Type Department Care Team ([facility] st Contact Info) Description 05/14/2025 Refill [facility] MEDICINE [address] [place], [place] [phone] Name, MD Beltran [address] [place] [address] Social History Tobacco Use Types Packs/Day Years Used Date Smoking Tobacco: Every Day Cigarettes Alcohol Use Standard Drinks/Week Comments Never 0 (1 standard drink = 0.6 oz pur e alcohol) Depression Answer Date Recorded Patient Health Questionnaire-9 Score 0 04/11/2023 Housing Stability Answer Date Recorded What is your housing situation today? I have oral ro 10/20/[address] you li ve. Do you have problems with any of the following? None of the above 10/20/2024 Food Insecurity Answer Date Recorded Within the past 12 months, y ou worried that your food would run out before you got money to buy more: Never True 10/20/2024 Within the past 12 months,th e food you bought just didn't last and you didn't have enough money to get more: Never True Transportation Answer Date Recorded In the past 12 months, has l ack of transportation kept you from medical appts, meetings, work or from getting things needed for daily living? No 10/20/2024 Utilities Answer Date Recorded In the past 12 months, has t he electric, gas, oil or water company threatened to shut off services in your home? No 10/20/2024 Depression Answer Date Recorded Patient Health Questionnaire-2 Score 0 04/11/2023 Internet Access Answer Date Recorded Internet Access Q1 Yes 10/20/2024 Internet Access Q2 Not on file 10/20/2024 Comments Unknown Sex and Gender Information Value [...] Description 05/18/2025 9:30 AM EDT Office Visit [facility] MEDICINE [address] [place] [address] NameBeltran MD [address] [place] [address] documented as of this encounter Visit Diagnoses Not on filedocumented in this encounter Additional Health Concerns Assessment Noted Time PHQ-9 Depression Total Score: 0 04/11/20 23 10:05 AM EDT documented as of this encounter Care Teams Home School Liaison Officer Relationship Specialty Start Date End Date NameBeltran MD [address] [place] [phone] PCP - General Family Medicine 12/05/15 documented as of this encounter
--- OUTSIDE RECORDS SUMMARY | 2025-05-17 15:43 | XMS_ITS | Encounter Summary ---
Author Organization [employer] Address [address] [facility] [address] 7[address] [place] [address] Care Team Providers Care Social Problems Specialist Name Role Phone Name, Beltran LEACH Primary Care Provider [phone] Reason for Visit * Reason Onset Date Comments CHART PREP 05/17/2025 Encounter Details Date Type Department Care Team ([facility] st Contact Info) Description 05/17/2025 Telephone [facility] MEDICINE [address] [place], [place] [phone] Enrique Sims [place] CHART PREP Social History Tobacco Use Types Packs/Day Years [...] encounter Miscellaneous Notes * Telephone Encounter - Enrique Sims [place] - 05/17/2025 10:48 AM EDT Chart Prep Labs: not done Images: done Referrals: not applicable Vaccines due: Covid, Flu, PCV20, Tdap, Td, RSV, Zoster, and DTAP Screenings: colonoscopy, pap smear, and eye exam Overdue care gaps: A1c, Glucose, SBIRT, PHQ-9, CHIOMA-7, and Disability screen documented in this encounter Plan of Treatment Upcoming Encounters Date Type Department Care Team (Late st Contact Info) Description 05/18/2025 9:30 AM EDT Office Visit [facility] MEDICINE [address] [place] [address] NameBeltran MD [address] [place] [address] documented as of this encounter Visit Diagnoses Not on filedocumented in this encounter Additional Health Concerns Assessment Noted Time PHQ-9 Depression Total Score: 0 04/11/20 23 10:05 AM EDT documented as of this encounter Care Teams Social Problems Specialist Relationship Specialty Start Date End Date Name, MD Beltran [address] [place] [phone] PCP - General Family Medicine 12/05/15 documented as of this encounter
--- OUTSIDE RECORDS SUMMARY | 2025-05-17 15:43 | XMS_ITS | Encounter Summary ---
Author Organization [employer] Address [address] [facility] 7t [place] [address] Care Team Providers Care Automatic Mounter Name Role Phone Name, Beltran LEACH Primary Care Provider [phone] Reason for Visit * Reason Comments Med Refill Encounter Details Date Type Department Care Team ([facility] Contact Info) Description 02/19/2024 Refill [facility] MEDICINE [address] [place], [place] [phone] Name, MD Beltran [address] [place] [address] Cervical radiculopathy Social History Tobacco Use Types Packs/Day Years Used Date Smoking Tobacco: Every Day Cigarettes Alcohol Use Standard Drinks/Week Comments Never 0 (1 standard drink = 0.6 oz pur e alcohol) Depression Answer Date Recorded Patient Health Questionnaire-9 Score 0 04/11/2023 Housing Stability Answer Date Recorded What is your housing situation today? I have oralfarnaz ro 06/19/[address] you li ve. Do you have problems with any of the following? None of the above 06/19/2023 Food Insecurity Answer Date Recorded Within the past 12 months, y ou worried that your food would run out before you got money to buy more: Sometimes True 2023 Within the past 12 months,th e food you bought just didn't last and you didn't have enough money to get more: Sometimes True 09/17/2023 Transportation Answer Date Recorded In the past 12 months, has l ack of transportation kept you from medical appts, meetings, work or from getting things needed for daily living? Yes, it has kept me from medical appointments or getting medications. 09/17/2023 Utilities Answer Date Recorded In the past 12 months, has t he electric, gas, oil or water company threatened to shut off services in your home? Yes 06/08/2023 Depression Answer Date Recorded Patient Health Questionnaire-2 Score 0 04/11/2023 Comments Unknown Sex and Gender Information Value [...] Description 05/18/2025 9:30 AM EDT Office Visit [facility] MEDICINE [address] [place] [phone] Name, MD Beltran [address] [place] [address] documented as of this encounter Visit Diagnoses Diagnosis Cervical radiculopathy Brachial neuritis or radiculitis nos documented in this encounter Additional Health Concerns Assessment Noted Time PHQ-9 Depression Total Score: 0 04/11/20 23 10:05 AM EDT documented as of this encounter Care Teams Automatic Mounter Relationship Specialty Start Date End Date NameBeltran MD [address] [place] [phone] PCP - General Family Medicine 12/05/15 documented as of this encounter
--- OUTSIDE RECORDS SUMMARY | 2025-05-17 15:44 | XMS_ITS | Encounter Summary ---
Author Organization [employer] Address [address] [facility] 7t [place] [address] Care Team Providers Care Press Writer Name Role Phone Name, Beltran LEACH Primary Care Provider [phone] Reason for Visit * Reason Onset Date Comments Nurse Triage 08/20/2023 Encounter Details Date Type Department Care Team ([facility] st Contact Info) Description 08/20/2023 Telephone [facility] MEDICINE [address] [place], [place] [phone] Name, MD Beltran [address] [place] [address] Nurse Triage Social History Tobacco Use Types Packs/Day Years Used Date Smoking Tobacco: Every Day Cigarettes Alcohol Use Standard Drinks/Week Comments Never 0 (1 standard drink = 0.6 oz pur e alcohol) Depression Answer Date Recorded Patient Health Questionnaire-9 Score 0 04/11/2023 Housing Stability Answer Date Recorded What is your housing situation today? I have oral ro 06/19/[address] you li ve. Do you have problems with any of the following? None of the above 06/19/2023 Food Insecurity Answer Date Recorded Within the past 12 months, y ou worried that your food would run out before you got money to buy more: Never True 06/19/2023 Within the past 12 months,th e food you bought just didn't last and you didn't have enough money to get more: Never True Transportation Answer Date Recorded In the past 12 months, has l ack of transportation kept you from medical appts, meetings, work or from getting things needed for daily living? No 06/19/2023 Utilities Answer Date Recorded In the past [...] encounter Miscellaneous Notes * Telephone Encounter - Cecille Meza RN - 08/20/2023 11:53 AM EST Triage call Pt reports went to psychiatrist for med refills yesterday and BP was 154/88 Pt was advised to follow up with PCP. Pt had had headache, nausea and vomiting the night before 08/18/23. Pt reports continues to have nausea but headache is subsided. Pt was started on increased dose of lisinopril 07/28/23 (10mg) and has been taking daily before bed. Pt BP at time of call is 118/92 and BS this morning was 154. Pt reports drinking adequate fluids. Pt does have an apt with PCP 09/24/23. Pt is advised to come to [facility] to see provider and have BP and BS checked . Pt will come in the morning 08/21/23. Pt agrees with disposition and is advised to keep a written record of BS and BP every morning a nd evening to bring to the MD apt 09/24/23. Pt agrees to do this for better information if adjustment of BP med is needed. Protocol Used: Blood Pressure - High (Adult) Protocol-Based Disposition: See in Office or Video Visit within 2 Weeks Video visit not offered Positive Triage Question: * Systolic BP >= 130 OR Diastolic >= 80, and history of heart problems, kidney disease, or diabetes mellitus * All higher-acuity triage questions were negative Care Advice Discussed: * High Blood Pressure * High Blood Pressure - Lifestyle Modifications * How to Check Your Blood Pressure? * Reasons To Call Back - Headache, blurred vision, difficulty talking, or difficulty walking occurs - Chest pain or difficulty breathing occurs - You want to go into the office for a blood pressure check - You become worse * Telephone Encounter - Virginia Mayo - 08/20/2023 11:05 AM EST Symptom: High Blood Pressure - Caller Reports Outcome: Schedule an urgent appointment (within 1 hour) or talk to a nurse or provider soon Reason: Getting worse The caller accepted this outcome Please contact pt @ [phone] documented in this encounter Plan of Treatment Upcoming Encounters Date Type Department Care Team (Late st Contact Info) Description 05/18/2025 9:30 AM EDT Office Visit [facility] MEDICINE [address] [place] [phone] Name, MD Beltran [address] [place] [phone] documented as of this encounter Visit Diagnoses Not on filedocumented in this encounter Additional Health Concerns Assessment Noted Time PHQ-9 Depression Total Score: 0 04/11/20 10:05 AM EDT documented as of this encounter Care Teams Press Writer Relationship Specialty Start Date End Date Name, MD Beltran [address] [place] [phone] PCP - General Family Medicine 12/05/15 documented as of this encounter
--- OUTSIDE RECORDS SUMMARY | 2025-05-17 15:44 | XMS_ITS | Encounter Summary ---
Author Organization [employer] Address [address] [facility] 7t [place] [address] Care Team Providers Care Beam Racker Name Role Phone Name, Beltran LEACH Primary Care Provider [phone] Reason for Visit * Reason Comments Med Refill Encounter Details Date Type Department Care Team ([facility] st Contact Info) Description 06/27/2023 Refill [facility] MEDICINE [address] [place], [place] [phone] Name, MD Beltran [address] [place] [address] Social History Tobacco Use Types Packs/Day Years [...] 05/18/2025 9:30 AM EDT Office Visit [facility] MEDICINE [address] [place] [phone] Name, MD Beltran [address] [place] [phone] documented as of this encounter Visit Diagnoses Not on filedocumented in this encounter Additional Health Concerns Assessment Noted Time PHQ-9 Depression Total Score: 0 04/11/20 23 10:05 AM EDT documented as of this encounter Care Teams Beam Racker Relationship Specialty Start Date End Date Name, MD Beltran [address] [place] [phone] PCP - General Family Medicine 12/05/15 documented as of this encounter
--- OUTSIDE RECORDS SUMMARY | 2025-05-17 15:44 | XMS_ITS | Clinical Summary ---
Author Organization [employer] Address [address] [facility] 7t [place] [address] Care Team Providers Care Newspaper Inserter Name Role Phone Name, Beltran LEACH Primary Care Provider [phone] Allergies Active Allergy Reactions Criticality Noted Date Comments Naproxen High 05/18/2014 Other reaction(s): rash and swelling Medications loperamide (Imodium) 2 MG capsule Take 2 capsules by mouth. 019 Active meclizine (Antivert) 25 MG tablet Take 1 tablet by mouth every 8 (eight) hours. 015 Active valACYclovir (Valtrex) 1 g tablet Take 1 tablet by mouth every 8 (eight) hours. 022 Active Alcohol Swabs (Alcohol Prep) pads Use prior to insulin injections and glucose checks Active Nebulizer misc Use as directed with duoneb and albuterol Active Blood Glucose Monitoring Suppl (FreeStyle glucose monitoring) kit 1 each if needed. Active buPROPion XL (Wellbutrin XL) 300 MG 24 hr tablet Take 1 tablet by mouth in the morning. 023 Active clonazePAM (KlonoPIN) 1 MG tablet TAKE 1 TABLET BY MOUTH THREE TIMES DAILY NEEDED 023 Active zolpidem (Ambien) 10 MG tablet Take 10 mg by mouth if needed at bedtime. 023 Active TRUEplus Lancets 33G miscIndications:T ype 2 diabetes mellitus with hyperglycemia (CMS/HCC) TEST BLOOD SUGAR THREE TIMES DAILY 200 each 5 023 Active Novofine Pen Needle 32G X 6 MM misc USE FOUR TIMES DAILY WITH INSULIN 100 each 3 023 Active nicotine (Nicoderm CQ) 21 MG/24HR patch Place 1 patch on the skin 1 (one) time each day at the same time. 30 patch 2 023 Active Spacer/Aero-Holdi ng Chambers (OptiChamber Brenda) misc 1 each every 4 (four) hours if needed (asthma). 1 each 023 Active losartan (Cozaar) 50 MG tablet Take 1 tablet (50 mg) by mouth in the morning. 30 tablet Active FreeStyle lancetsIndication s:Polyneuropathy due to type 2 diabetes mellitus (CMS/HCC) 1 each by Other route 3 times daily. 100 each Active pen needle 32G x 4 mm misc Use four times per day with insulinInject under the skin. Use four times per day with insulin 100 each Active metoprolol succinate XL (Toprol-XL) 25 MG 24 hr tablet Take 25 mg by mouth Once per day. Active chlorhexidine (Peridex) 0.12 % solution Swish 15 mL morning and night for 1 minute. Spit, do not swallow. Do not eat or drink for 30 minutes following use. 473 mL Active omeprazole (PriLOSEC) [address] capsuleIndication s:Type 2 diabetes mellitus without complication, with long-term current use of insulin (CMS/[facility]) Take 1 capsule (20 mg) by mouth Once per day. Take 1 capsul by oral route every day 30 minutes to 1 hour before a meal 30 capsule 2 025 2025 Active atorvastatin (Lipitor) 40 MG tablet TAKE 1 TABLET BY MOUTH EVERY DAY AT BEDTIME 90 tablet 1 Active Trulicity 0.75 MG/0.5ML solution auto-injector INJECT ONE PEN (=0.75MG) SUBCUTANEOUSLY ONCE A WEEK DIRECTED 2 mL Active Tresiba FlexTouch 100 UNIT/ML injection INJECT 48 UNITS SUBCUTANEOUSLY ONCE DAILY 15 mL Active albuterol (Ventolin HFA) 108 (90 Base) MCG/ACT inhaler INHALE 2 PUFFS BY MOUTH EVERY 4 HOURS NEEDED FOR WHEEZING OR SHORTNESS OF BREATH 18 g 1 Active aspirin (Aspirin Low Dose) 81 MG EC tabletIndications :Diabetic polyneuropathy associated with type 2 diabetes mellitus (CMS/HCC) Take 1 tablet (81 mg) by mouth Once per day. 90 tablet 3 025 Active Combivent Respimat 20-100 MCG/ACT inhaler INHALE 1 PUFF BY MOUTH EVERY 6 HOURS NEEDED FOR WHEEZING, RINSE MOUTH AFTER USING. 4 g 1 025 Active glucose blood (FREESTYLE LITE) test stripIndications: Type 2 diabetes mellitus with hyperglycemia (CMS/HCC) USE DIRECTED TO TEST BLOOD SUGAR THREE TIMES DAILY DIRECTED 100 strip 5 025 Active gabapentin (Neurontin) 800 MG tabletIndications :Cervical radiculopathy TAKE 1 TABLET BY MOUTH THREE TIMES DAILY 90 tablet 3 025 Active insulin aspart FlexPen (NovoLOG) 100 UNIT/ML pen INJECT 10 UNITS SUBCUTANEOUSLY EVERY MORNING, 15 UNITS WITH LUNCH, AND 20 UNITS WITH DINNER 15 mL 3 025 Active insulin aspart FlexPen (NovoLOG) 100 UNIT/ML pen INJECT 10 UNITS SUBCUTANEOUSLY EVERY MORNING, 15 UNITS WITH LUNCH, AND 20 UNITS WITH DINNER 15 mL 3 025 2024 Discontinued Active Problems Problem Noted Date Diagnosed Date Periodontal disease 09/08/2024 Dental caries 09/08/2024 Dental abscess 08/30/2024 Other chest pain 07/29/2023 Assessment & Plan (07/29/2023 2:34 PM EST): Resolved, occurred on day prior to presentation Pt declines visit to ER EKG without ischemic changes Will refer to cardiology, increase BP medication from 2.5mg to 10mg of Lisinopril Continue to monitor Bps daily, if remain >140/90 to come back to walkin clinic IF chest pain reoccurs, recommend ER Primary hypertension 07/29/2023 Bilateral arm weakness 08/02/2022 Chronic neck pain 08/02/2022 Spinal stenosis in cervical region 08/02/2022 Polyneuropathy due to type 2 diabetes mellitus 1 10/03/2021 Carpal tunnel syndrome 11/20/2018 Cervical radiculopathy 09/09/2017 Osteoarthritis of spine with radiculopathy, cerv ical region 06/27/2017 Pain in left arm 06/27/2017 Diabetic retinopathy associa malena with type 2 diabetes mellitus 04/22/2017 Shoulder pain 04/15/2017 Backache 03/25/2016 Chronic obstructive lung disease 03/25/2016 Diabetic neuropathy 03/25/2016 Depressive disorder 07/08/2012 Type 2 diabetes mellitus 07/08/2012 Hyperlipidemia 07/08/2012 Uterine leiomyoma 07/08/2012 Encounters Date Type Department Care Team Description 05/17/2025 Telephone [facility] MEDICINE [address] [place] [address] Enrique Sims [place] CHART PREP 05/14/2025 Refill [facility] MEDICINE [address] [place] [address] Name, MD Beltran 04/08/2025 Refill [facility] MEDICINE [address] [place] [address] NameBeltran MD Cervical radiculopathy 03/16/2025 Refill [facility] MEDICINE [address] [place] [address] NameBeltran MD Type 2 diabetes mellitus with hyperglycemia ([facility]) 03/13/2025 Refill [facility] MEDICINE [address] [place] [address] NameBeltran MD 02/16/2025 8:00 AM EDT Office Visit [facility] ADULT DENTAL [address] [place] [address] CarolynnPhillipsSarabjit schraderfemia, DDS Edentulism (Primary Dx) from Last 3 Months Immunizations Immunization Administration Dates Next Due Influenza, IIV3, injectable 05/18/2014, 3 Influenza, Split (incl. purified surface antigen ) 08/18/2013 Pneumococcal Polysaccharide PPSV23 06/14/2014, TD (adult), 2 Lf tetanus tox oid, preservative free, adsorbed 10/06/2000 Tdap 10/11/2014 Social History Tobacco Use Types Packs/Day Years Used Date Smoking Tobacco: Every Day Cigarettes Tobacco Cessation:Ready to Q uit: Not Asked; Counseling Given: Not Answered Alcohol Use Standard Drinks/Week Comments Never 0 [...] Don't know 07/01/2022 10 :15 AM EDT Last Filed Vital Signs Vital Sign Reading Time Taken Comments Blood Pressure 120/78 02/16/2025 8:11 AM EDT Pulse 70 10/29/2024 10:49 AM EST Temperature 36.4 C (97.6 F) 10/29/2024 10:49 AM EST Respiratory Rate 12 10/29/2024 10:49 AM EST Oxygen Saturation 96% 10/29/2024 10:49 AM EST Inhaled Oxygen Concentration - - Weight 95.4 kg (210 lb 6.4 oz) 10/29/2024 10:49 AM EST Height 160 cm (5' 3 ) 10/29/2024 10:49 AM EST Body Mass Index 37.27 10/29/2024 10:49 AM EST Plan of Treatment Upcoming Encounters Date Type Department Care Team (Late st Contact Info) Description 05/18/2025 9:30 AM EDT Office Visit [facility] MEDICINE [address] [facility] [place] [address] Name, MD Beltran [facility] [place] [address] Health Maintenance Due Date Last Done Comments CT Colonography 1964 Colonoscopy 1964 Colorectal Cancer Screening 1964 Dental Prophylaxis 1964 FIT DNA/Cologuard 1964 FIT 1964 FOBT 1964 HIV Screening 1964 Sigmoidoscopy 1964 Disability Screening 1964 Eye Exam 1974 Alcohol/Substance Use Screening 1976 Hepatitis C Screening 1982 Pap Smear 1985 Cervical Cancer Screening 1994 HPV/Cotest 1994 Zoster Vaccines (1 of 2) 2014 Pneumococcal Vaccine: 50+ Years (2 of 2 - PCV) 06/14/2015 06/14/2014, 10/06/2000 Dental X-Ray: Bitewings 06/28/2015 06/27/2014 Dental Oral Exam 03/19/2017 09/18/2016, 06/27/2014 Dental X-Ray: Full Mouth 09/19/2019 09/18/2016, 06/02 Mammogram 12/14/2023 12/13/2021, 03/02, 03/09/2018, Additional history exists Depression Screening 04/11/2024 04/11/2023, 04/11/20 23 RSV Patients and Patients Aged 60 years or older (1 - Risk 60-74 years 1-dose series) 2024 Diabetes: Urine Protein Screening 07/11/2024 07/11/2023, 07/30/2021 Diabetes: Foot Exam 09/24/2024 09/24/2023, 09/24/2023, 09/24/2023, Additional history exists DTaP/Tdap/Td Vaccines (2 - Td or Tdap) 10/11/2024 10/11/2014, 10/06/2000 Diabetes: Hemoglobin A1C 01/26/2025 025, 12/26/2023, 09/24/2023, Additional history exists COVID-19 Vaccine ( season) 2025 10/25/2021, 02/02/2021, 01/05/2021 Influenza Vaccine (#1) 2025 4, 08/18/2013, 06/22/2003 SDOH Screening 10/20/2025 10/20/2024 Tobacco Screening 02/16/2026 02/16/2025 Lipid Panel 05/17/2026 05/17/2025, 07/02, 07/30/2021, Additional history exists HIB Vaccines Aged Out No longer eligi ble based on patient's age to complete this topic HPV Vaccines Aged Out No longer eligi ble based on patient's age to complete this topic Hepatitis A Vaccines Aged Out No long er eligible based on patient's age to complete this topic Hepatitis B Vaccines Aged Out No long er eligible based on patient's age to complete this topic IPV Vaccines Aged Out No longer eligi ble based on patient's age to complete this topic Meningococcal B Vaccine Aged Out No l onger eligible based on patient's age to complete this topic Meningococcal Vaccine Aged Out No jessika anton eligible based on patient's age to complete this topic RSV under 20 months Aged Out No longe r eligible based on patient's age to complete this topic Rotavirus Vaccines Aged Out No longer eligible based on patient's age to complete this topic Procedures Procedure Name Priority Date/Time Associated Diagnosis Comments LIPID PANEL, STANDARD Routine 05/17/2025 11:55 AM EDT Type 2 diabetes mellitus without complication, with long-term current use of insulin ([facility]) Primary hypertension COMPREHENSIVE METABOLIC PANEL Routine 05/17/2025 11:55 AM EDT Type 2 diabetes mellitus without complication, with long-term current use of insulin ([facility]) Primary hypertension CBC WITH AUTO DIFFERENTIAL Routine 05/17/2025 11:55 AM EDT Type 2 diabetes mellitus without complication, with long-term current use of insulin ([facility]) Primary hypertension WAX TRY IN Routine 02/16/2025 8:00 AM EDT Edentulism POCT GLYCATED HEMOGLOBIN, TOTAL Routine 10/29/2024 10:50 AM EST Type 2 diabetes mellitus without complication, with long-term current use of insulin ([facility]) ALBUMIN, RANDOM URINE W/CREATININE Routine 07/11/2023 11:48 AM EST Type 2 diabetes mellitus without complication, with long-term current use of insulin ([facility]) History of Helicobacter pylori infection MAMMOGRAM GENERIC Routine 12/13/2021 8:3 9 AM EDT PANORAMIC RADIOGRAPHIC IMAGE Routine 09/18/2016 12:00 AM EST PERIODIC ORAL EVALUATION - ESTABLISHED PATIENT Routine 09/18/2016 12:00 AM EST INTRAORAL - COMPLETE SERIES OF RADIOGRAPHIC IMAGES Routine 06/27/2014 12:00 AM EDT from Last 3 Months or Most Recently Relevant to Health Maintenance Results * CBC auto differential (05/17/2025 11:55 AM EDT) White Blood Count 9.7 4.8 - 10.8 X10*3/uL [facility] Red Blood Count 4.56 4.20 - 5.50 X10*6/uL [facility] Hemoglobin 13.7 12.0 - 16.0 g/dl [facility] Hematocrit 40.5 37.0 - 47.0 % [facility] Mean Corpuscular Volume 88.8 80.0 - 98.0 fL [facility] Mean Corpuscular Hemoglobin 30.0 27.0 - 33.0 pg [facility] Mean Corpuscular HGB Conc 33.8 31.0 - 35.0 g/dl [facility] Red Cell Distribution Width 12.4 11.0 - 16.0 % [facility] Platelet Count 249 160 - 400 X10*3/uL [facility] Mean Platelet Volume 11.2 9.4 - 12.3 fL [facility] Neutrophils Percent Auto 64.8 45 - 73 % [facility] Imm Gran Pct Auto 0.3 0.0 - 0.4 % [facility] Lymphocytes Percent Auto 25.4 20 - 40 % [facility] Monocytes Percent Auto 5.2 2 - 11 % [facility] Eosinophils Percent Auto 4.0 0 - 4 % [facility] Basophils Percent Auto 0.3 0 - 2 % [facility] NRBC Pct Auto 0.0 0.0 - 0.2 /100WBC [facility] Neutrophils Absolute Auto 6.3 2.0 - 8.3 x10*3/uL [facility] Imm Gran Abs Auto 0.03 0.00 - 0.03 X10*3/uL [facility] Lymphocytes Absolute Auto 2.5 1.2 - 4.9 X10*3/uL [facility] Monocytes Absolute Auto 0.5 0.1 - 1.2 X10*3/uL [facility] Eosinophils Absolute Auto 0.4 0.0 - 0.4 X10*3/uL [facility] Basophils Absolute Auto 0.0 0.0 - 0.2 X10*3/uL [facility] NRBC Abs Auto 0.000 0.0 - 0.012 X10*3/uL [facility] Blood Venous blood specimen / Unknown 05/17/2025 11:55 AM EDT 05/17/2025 1:13 PM EDT us Beltran Name LAB BLOOD ORDERABLES Final Resul t [facility] [address] [place] [phone] * (ABNORMAL) Lipid Panel, Standard (05/17/2025 11:55 AM EDT) Triglycerides 133 <150 mg/dL [facility] Comment:Desirable Triglyceri de: less than 150 mg/dLBorderline High Triglyceride 150-199 mg/dLHigh Triglyceride: 200-499 mg/dLVery High Triglyceride: greater than or equal to 5OO mg/dL Cholesterol 139 <200 mg/dL [facility] Comment:Desirable Cholestero l: less than 200 mg/dLBorderline High Cholesterol: 200-239 mg/dLHigh Cholesterol: greater than 239 mg/dL LDL Cholesterol Calculated 84 <100 mg/dL [facility] Comment:Desirable LDL: less than 100 mg/dLNear Optimal/Above Optimal LDL: 110- 129 mg/dLBorderline High LDL: 130-159 mg/dLHigh LDL: 160-189 mg/dLVery High LDL: greater than or equal to 190 mg/dL HDL Cholesterol 29(L) >40 mg/dL [facility] Comment:Desirable HDL: great er than 40 mg/dL Note: This HDL assay may give artificially low results in patients with liver disease. Blood Venous blood specimen / Unknown 05/17/2025 11:55 AM EDT 05/17/2025 1:22 PM EDT us Beltran Name MD LAB BLOOD ORDERABLES Final Resul t [facility] [address] [place] [phone] * (ABNORMAL) Comprehensive Metabolic Panel (05/17/2025 11:55 AM EDT) Sodium 136 135 - 145 mmol/L [facility] Potassium 4.4 3.3 - 5.1 mmol/L [facility] Chloride 102 96 - 108 mmol/L [facility] Carbon Dioxide 28 22 - 29 mmol/L [facility] Anion Gap 10(L) 12 - 20 [facility] Urea Nitrogen (BUN) 18(H) 9 - 16 mg/dL [facility] Creatinine, Serum 0.78 0.5 - 1.4 mg/dL [facility] Estimated Glomerular Filt Rate >60 [facility] Comment:Chronic Kidney Disea se: Estimated GFR < 60 mL/min/[id number] Kidney Disease: Estimated GFR < 15 mL/min/1.73m2 Glucose 271(H) 60 - 115 mg/dL [facility] Calcium 8.8 8.4 - 10.2 mg/dL [facility] Bilirubin, Total 0.5 0.0 - 1.0 mg/dL [facility] Aspartate Amino Transferase 23 5 - 31 U/L [facility] Alanine Aminotransferase 16 0 - 31 U/L [facility] Total Protein 7.3 6.5 - 8.0 g/dL [facility] Albumin Level 3.9 3.5 - 5.0 g/dL [facility] Alkaline Phosphatase 160(H) 39 - 117 U/L [facility] Blood Venous blood specimen / Unknown 05/17/2025 11:55 AM EDT 05/17/2025 1:22 PM EDT us Beltran Ramirez MD LAB BLOOD ORDERABLES Final Resul t Performing Organization Address [facility] de Phone Number [facility] [address] [place] [phone] * (ABNORMAL) POCT HGB A1C (10/29/2024 10:50 AM EST) Hemoglobin A1C 8.9(A) 4.0 - 6.0 % QC Media Lot # [id number] Lot# Expiration Date Blood 10/29/2024 10:5 0 AM EST us Beltran Ramirez MD POINT OF CARE TEST ENTER/EDIT OR DERABLES Final Result * (ABNORMAL) Albumin, Random Urine W/Creatinine (07/11/2023 11:48 AM EST) Creatinine, Urine 228.92 mg/dL [facility] Microalbumin Urine 109.0 mg/L [facility] Microalbum Creatinine Ratio Ur 47.6(H) <30 ug/mg cr [facility] Comment:Albumin/Creatinine R atio Reference Ranges: Normal: < 30 ug/mg creatinine Microalbuminuria: 30 - 300 ug/mg creatinineClinical Albuminuria: > 300 ug/mg creatinine Urine 07/11/2023 11:4 8 AM EST 07/11/2023 1:19 PM EST us Beltran Ramirez MD LAB URINE ORDERABLES Final Resul t Performing Organization Address City/[facility] Co de Phone Number [facility] [address] [place] [phone] * Mammography Report 1 (12/13/2021 8:39 AM EDT) Anatomical Region Laterality Modality Breast Bilateral Mammography 12/13/2021 8:39 AM EDT Narrative 12/14/2021 1:54 PM EDT Refer to the Notes tab for result details [facility] Procedure: Mammography Report 1 Procedure Note Provider, MD Janna - 11/24/2022 Refer to the Notes tab for result details [facility] Procedure: Mammography Report 1 us Beltran Name IMG BI PROCEDURES Final Result from Last 3 Months or Most Recently Relevant to Health Maintenance Insurance [facility] STANDARD MEDICARE D[facility]AL-[facility] MEDICAID STAND ADULT Care Teams Newspaper Inserter Relationship Specialty Start Date End Date Name, MD Beltran [address] [place] [phone] PCP - General Family Medicine 12/05/15
--- OUTSIDE RECORDS SUMMARY | 2025-05-17 15:44 | XMS_ITS | Encounter Summary ---
Author Organization [employer] Address 75 [facility] 7t [place] [address] Care Team Providers Care Orthopedic Nurse Practitioner Name Role Phone Name, Beltran LEACH Primary Care Provider [phone] Reason for Visit * Reason Comments Med Refill Encounter Details Date Type Department Care Team ([facility] Contact Info) Description 10/02/2023 Refill [facility] [address] [place], [place] [phone] Yoni Ann MD [address] [place] [address] Social History Tobacco Use Types Packs/Day Years [...] Description 05/18/2025 9:30 AM EDT Office Visit [facility] [address] [place] [address] Name, MD Beltran [address] [place] [address] documented as of this encounter Visit Diagnoses Not on filedocumented in this encounter Additional Health Concerns Assessment Noted Time PHQ-9 Depression Total Score: 0 04/11/20 23 10:05 AM EDT documented as of this encounter Care Teams Orthopedic Nurse Practitioner Relationship Specialty Start Date End Date Name, MD Beltran [address] [place] [address] PCP - General Family Medicine 12/05/15 documented as of this encounter
--- OUTSIDE RECORDS SUMMARY | 2025-05-17 15:44 | XMS_ITS | Encounter Summary ---
Author Organization [employer] Address 75 [facility] 7t [place] [address] Care Team Providers Care Emergency Detail Driver Name Role Phone Name, Beltran LEACH Primary Care Provider [phone] Reason for Visit * Reason Comments Med Refill Encounter Details Date Type Department Care Team ([facility] st Contact Info) Description 10/23/2023 Refill [facility] [address] [place], [place] [phone] Name, MD Beltran 230 [place] [address] Social History Tobacco Use Types Packs/Day Years [...] Office Visit [facility] [address] [place] [address] Name, MD Beltran [address] [place] [address] documented as of this encounter Visit Diagnoses Not on filedocumented in this encounter Additional Health Concerns Assessment Noted Time PHQ-9 Depression Total Score: 0 04/11/20 23 10:05 AM EDT documented as of this encounter Care Teams Emergency Detail Driver Relationship Specialty Start Date End Date Name, MD Beltran [address] [place] [address] PCP - General Family Medicine 12/05/15 documented as of this encounter
--- OUTSIDE RECORDS SUMMARY | 2025-05-17 15:44 | XMS_ITS | Encounter Summary ---
Author Organization [employer] Address 75 [facility] 7t [place] [address] Care Team Providers Care Podiatry Teacher Name Role Phone Name, Beltran LEACH Primary Care Provider [phone] Reason for Visit * Reason Onset Date Comments Reschedule 11/26/2023 Encounter Details Date Type Department Care Team ([facility] Contact Info) Description 11/26/2023 Telephone [facility] [address] [place], [place] [phone] Name, MD Beltran [address] [place] [address] Reschedule Social History Tobacco Use Types Packs/Day Years [...] encounter Miscellaneous Notes * Telephone Encounter - Donna Bonds - 11/26/2023 9:41 AM EDT Tc from pt requesting to reschedule 11/23 follow up appointment. Chemical Test Engineer attempted to schedule but noavailability. Please contact pt at [phone] documented in this encounter Plan of Treatment Upcoming Encounters Date Type Department Care Team (Late st Contact Info) Description 05/18/2025 9:30 AM EDT Office Visit [facility] [address] [place] [address] Name, MD Beltran [address] [place] [address] documented as of this encounter Visit Diagnoses Not on filedocumented in this encounter Additional Health Concerns Assessment Noted Time PHQ-9 Depression Total Score: 0 04/11/20 23 10:05 AM EDT documented as of this encounter Care Teams Podiatry Teacher Relationship Specialty Start Date End Date NameBeltran MD [address] [place] [address] PCP - General Family Medicine 12/05/15 documented as of this encounter
== END 2025-05-17 11:34 | disposition home or self-care (01) ==
LOC: HO.HHCL 11:33
PROVIDERS: PCP Internal Medicine Geriatric Medicine; Visit Provider Internal Medicine Geriatric Medicine
DX: I10 Essential (primary) hypertension (principal); E11.9 Type 2 diabetes mellitus without complications; Z79.4 Long term (current) use of insulin
CPT/HCPCS: 36415; 80053; 80061; 85025

== ENCOUNTER 2025-05-18 08:40 | Outpatient (REF) | payer MEDICARE, MEDICAID, SELFPAY ==
--- OUTSIDE RECORDS SUMMARY | 2025-05-18 09:30 | XMS_ITS | Encounter Summary ---
Author Organization [employer] Address [address] [place] [address] 7t [place] [address] Care Team Providers Care Appliance Repairer Name Role Phone Beltran Ramirez MD Primary Care Provider [phone] Reason for Referral * Consultation (Routine) - Pending Review Specialty Diagnoses / Procedures Referred By Nia preston Referred To Contact Ophthalmology Diagnoses Type 2 diabetes mellitus with unspecified complications (CMS/HCC) Beltran Ramirez MD [address] [place] [address] Phone: tel: fax: Referral ID Status Reason Start Date Expiration Date Visits Requested Visits Authorized [id number] Pending Review Specialty Services Required 05/18/2025 05/18/2026 1 1 * Consultation (Routine) - Authorized Specialty Diagnoses / Procedures Referred By Nia preston Referred To Contact Pharmacy Diagnoses Type 2 diabetes mellitus with unspecified complications (CMS/HCC) Beltran Ramirez MD [address] [place] [address] Phone: tel: fax: Referral ID Status Reason Start Date Expiration Date Visits Requested Visits Authorized [id number] Authorized Consult and Treat 05/18/2025 05/18/2026 6 6 * Imaging (Routine) - Pending Review Specialty Diagnoses / Procedures Referred By Nia preston Referred To Contact Radiology Diagnoses Encounter for screening mammogram for malignant neoplasm of breast Procedures BI Mammogram Screening Tomosynthesis Bilateral Beltran Ramirez MD [address] [place] [address] Phone: tel: fax: Referral ID Status Reason Start Date Expiration Date V isits Requested Visits Authorized [id number] Pending Review 05/18/2025 05/18/2026 1 1 Reason for Visit * Reason Comments Diabetes Encounter Details Date Type Department Care Team (Latest Contact Info) Description 05/18/2025 9:30 AM EDT Office Visit [facility] [address] [place] [address] Name, MD Beltran [address] [place], [place] [phone] Type 2 diabetes mellitus with unspecified complications (CMS/HCC) (Primary Dx); Tobacco use disorder; Screen for colon cancer; Constipation, unspecified constipation type; Encounter for screening mammogram for malignant neoplasm of breast; Vaccine refused by patient Social History Tobacco Use Types Packs/Day Years [...] housing situation today? I have oralfarnaz ro 10/20/[address] you [...] AM EDT documented as of this encounter Last Filed Vital Signs Vital Sign Reading Time Taken Comments Blood Pressure 142/62 05/18/2025 9:29 AM EDT Pulse 73 05/18/2025 9:29 AM EDT Temperature 35.8 C (96.5 F) 05/18/2025 9:29 AM EDT Respiratory Rate 12 05/18/2025 9:29 AM EDT Oxygen Saturation 97% 05/18/2025 9:29 AM EDT Inhaled Oxygen Concentration - - Weight 92.5 kg (204 lb) 05/18/2025 9:29 AM EDT Height 162.6 cm (5' 4 ) 05/18/2025 9:29 AM EDT Body Mass Index 35.02 05/18/2025 9:29 AM EDT documented in this encounter Plan of Treatment Upcoming Encounters Date Type Department Care Team (Late st Contact Info) Description 06/15/2025 10:30 AM EDT Medication Management [facility] [address] [place] [address] Amina Singh, PharmD [address] [place] [address] Scheduled Orders Name Type Priority Associated Diagnoses Orde r Schedule BI Mammogram Screening Tomosynthesis Bilateral Imaging Routine Encounter for screening mammogram for malignant neoplasm of breast Expected: 05/18/2025, Expires: 07/18/2026 Scheduled Referrals Name Type Priority Associated Diagnoses Orde r Schedule Referral to Pharmacy CDTM Outpatient Referral Routine Type 2 diabetes mellitus with unspecified complications (CMS/HCC) Ordered: 05/18/2025 Referral to Ophthalmology Outpatient Referral Routine Type 2 diabetes mellitus with unspecified complications (CMS/HCC) Expected: 05/18/2025 (Approximate), Expires: 05/18/2026 documented as of this encounter Procedures Procedure Name Priority Date/Time Associated Diagnosis Comments POCT GLYCATED HEMOGLOBIN, TOTAL Routine 05/18/2025 9:32 AM EDT Type 2 diabetes mellitus with unspecified complications (CMS/HCC) POCT GLUCOSE Routine 05/18/2025 9:30 AM EDT Type 2 diabetes mellitus with unspecified complications (CMS/HCC) documented in this encounter Results * (ABNORMAL) POCT Hgb A1c (05/18/2025 9:32 AM EDT) Hemoglobin A1C 8.4(A) 4.0 - 5.7 % QC Media Lot # [id number] Lot# Expiration Date 427 Blood 05/18/2025 9:32 AM EDT us Beltran Ramirez MD POINT OF CARE TEST ENTER/EDIT OR DERABLES Final Result * POCT Glucose (05/18/2025 9:30 AM EDT) Glucose Blood, POC 184 60 - 200 mg/dL QC Media Lot # [id number] Lot# Expiration Date 31,126 Blood Capillary blood specimen / Unknown 05/18/2025 9:30 AM EDT us Beltran Ramirez MD POINT OF CARE TEST ENTER/EDIT OR DERABLES Final Result documented in this encounter Visit Diagnoses Diagnosis Type 2 diabetes mellitus with unspecified complications (CMS/HCC)- Primary Tobacco use disorder Screen for colon cancer Special screening for malignant neoplasms, colon Constipation, unspecified constipation type Encounter for screening mammogram for malignant neoplasm of breast Vaccine refused by patient documented in this encounter Additional Health Concerns Assessment Noted Time PHQ-9 Depression Total Score: 0 04/11/20 23 10:05 AM EDT documented as of this encounter Care Teams Appliance Repairer Relationship Specialty Start Date End Date Name, MD Beltran [address] [place] [address] PCP - General Family Medicine 12/05/15 documented as of this encounter
--- OUTSIDE RECORDS SUMMARY | 2025-05-18 10:05 | XMS_ITS | Encounter Summary ---
Author Organization [employer] Address 75 [facility] 7t [place] [address] Care Team Providers Care Reed Repairer Name Role Phone Name, Beltran LEACH Primary Care Provider [phone] Reason for Visit * Reason Comments Med Refill Encounter Details Date Type Department Care Team ([facility] Contact Info) Description 02/19/2024 Refill [facility] [address] [place], [place] [phone] Name, MD Beltran [address] [place] [address] Cervical radiculopathy Social History Tobacco Use Types [...] Description 06/15/2025 10:30 AM EDT Medication Management [facility] [address] [place] [address] Amina Singh, PharmD [address] [place] [address] documented as of this encounter Visit Diagnoses Diagnosis Cervical radiculopathy Brachial neuritis or radiculitis nos documented in this encounter Additional Health Concerns Assessment Noted Time PHQ-9 Depression Total Score: 0 04/11/20 23 10:05 AM EDT documented as of this encounter Care Teams Reed Repairer Relationship Specialty Start Date End Date Name, MD Beltran [address] [place] [address] PCP - General Family Medicine 12/05/15 documented as of this encounter
--- OUTSIDE RECORDS SUMMARY | 2025-05-18 10:05 | XMS_ITS | Encounter Summary ---
Author Organization [employer] Address 75 [facility] 7t [place] [address] Care Team Providers Care Menswear Salesperson Name Role Phone Name, Beltran LEACH Primary Care Provider [phone] Reason for Visit * Reason Comments Med Refill Encounter Details Date Type Department Care Team ([facility] st Contact Info) Description 06/27/2023 Refill [facility] 230 [place], [place] [phone] Name, MD Beltran [address] [place] [address] Social History Tobacco Use Types Packs/Day Years [...] Description 06/15/2025 10:30 AM EDT Medication Management [facility] [address] [place] [address] Amina Singh, MichaelD [address] [place] [address] documented as of this encounter Visit Diagnoses Not on filedocumented in this encounter Additional Health Concerns Assessment Noted Time PHQ-9 Depression Total Score: 0 04/11/20 23 10:05 AM EDT documented as of this encounter Care Teams Menswear Salesperson Relationship Specialty Start Date End Date Name, MD Beltran [address] [place] [address] PCP - General Family Medicine 12/05/15 documented as of this encounter
--- OUTSIDE RECORDS SUMMARY | 2025-05-18 10:05 | XMS_ITS | Encounter Summary ---
Author Organization [employer] Address [address] [facility] 7t [place] [address] Care Team Providers Care Guest Services Lead Name Role Phone Name, Beltran LEACH Primary Care Provider [phone] Reason for Visit * Reason Onset Date Comments Nurse Triage 08/20/2023 Encounter Details Date Type Department Care Team ([facility] st Contact Info) Description 08/20/2023 Telephone [facility] [address] [place], [place] [phone] Name, MD Beltran [address] [place] [address] Nurse Triage Social History Tobacco Use Types [...] 09/24/23. Pt is advised to come to [facility] to see provider and have BP and [...] accepted this outcome Please contact pt @ [phone] documented in this encounter Plan of Treatment Upcoming Encounters Date Type Department Care Team (Late st Contact Info) Description 06/15/2025 10:30 AM EDT Medication Management [facility] [address] [place] [address] Amina Singh, PharmD [address] [place] [address] documented as of this encounter Visit Diagnoses Not on filedocumented in this encounter Additional Health Concerns Assessment Noted Time PHQ-9 Depression Total Score: 0 04/11/20 10:05 AM EDT documented as of this encounter Care Teams Guest Services Lead Relationship Specialty Start Date End Date Name, MD Beltran [address] [place] [address] PCP - General Family Medicine 12/05/15 documented as of this encounter
--- OUTSIDE RECORDS SUMMARY | 2025-05-18 10:05 | XMS_ITS | Encounter Summary ---
Author Organization [employer] Address [address] [place] [address] 7 [place] [address] Care Team Providers Care Vice President Of Recruiting Name Role Phone Name, Beltran LEACH Primary Care Provider [phone] Encounter Details Date Type Department Care Team (Late Contact Info) Description 01/24/[address] [facility] Health Information Management [address] [place] [address] Name, MD Beltran [address] [place] [address] Social History Tobacco Use Types Packs/Day Years [...] Description 06/15/2025 10:30 AM EDT Medication Management [facility] [address] [place] [address] Amina Singh, PharmD [address] [place] [address] documented as of this encounter Visit Diagnoses Not on filedocumented in this encounter Care Teams Vice President Of Recruiting Relationship Specialty Start Date End Date Name, MD Beltran [address] [place] [address] PCP - General Family Medicine 12/05/15 documented as of this encounter
--- OUTSIDE RECORDS SUMMARY | 2025-05-18 10:05 | XMS_ITS | Encounter Summary ---
Author Organization [employer] Address 75 [facility] 7t [place] [address] Care Team Providers Care Emergency Department Physician Name Role Phone Name, Beltran LEACH Primary Care Provider [phone] Encounter Details Date Type Department Care Team (Latest Contact Info) Description 05/18/2025 Travel Social History Tobacco Use Types Packs/Day Years [...] Description 06/15/2025 10:30 AM EDT Medication Management [facility] [address] [place] [address] Amina Singh, PharmD [address] [place] [address] documented as of this encounter Visit Diagnoses Not on filedocumented in this encounter Additional Health Concerns Assessment Noted Time PHQ-9 Depression Total Score: 0 04/11/20 23 10:05 AM EDT documented as of this encounter Care Teams Emergency Department Physician Relationship Specialty Start Date End Date Name, MD Beltran [address] [place] [address] PCP - General Family Medicine 12/05/15 documented as of this encounter
--- OUTSIDE RECORDS SUMMARY | 2025-05-18 10:05 | XMS_ITS | Clinical Summary ---
Author Organization [employer] Address [address] [facility] 7t [place] [address] Care Team Providers Care General Scrap Worker Name Role Phone Name, Beltran LEACH Primary Care Provider Allergies Active Allergy Reactions Criticality Noted Date Comments Metformin 11/20/2018 Other reaction(s): Upset stomach Naproxen High 05/18/2014 Other reaction(s): rash and [...] at bedtime. 023 Active TRUEplus Lancets 33G miscIndications: Type 2 diabetes mellitus with hyperglycemia ([facility]/HCC) TEST BLOOD SUGAR THREE TIMES DAILY 200 each 5 023 Active Novofine Pen Needle 32G X 6 MM misc USE FOUR TIMES DAILY WITH INSULIN 100 each 3 023 Active nicotine (Nicoderm CQ) 21 MG/24HR patch Place 1 patch on the skin 1 (one) time each day at the same time. 30 patch 2 023 Active Spacer/Aero-Hold ing Chambers (OptiChamber Brenda) misc 1 each every 4 (four) hours if needed (asthma). 1 each 023 Active FreeStyle lancetsIndicatio ns:Polyneuropath y due to type 2 diabetes mellitus (CMS/HCC) 1 each by Other route 3 times daily. 100 each 024 Active pen needle 32G x 4 mm misc Use four times per day with insulinInject under the skin. Use four times per day with insulin 100 each 024 Active metoprolol succinate XL (Toprol-XL) 25 MG 24 hr tablet Take 25 mg by mouth Once per day. Active chlorhexidine (Peridex) 0.12 % solution Swish 15 mL morning and night for 1 minute. Spit, do not swallow. Do not eat or drink for 30 minutes following use. 473 mL 024 Active omeprazole (PriLOSEC) [address] capsuleIndicatiloc ns:Type 2 diabetes mellitus without complication, with long-term current use of insulin (CMS/HCC) Take 1 capsule (20 mg) by mouth Once per day. Take 1 capsul by oral route every day 30 minutes to 1 hour before a meal 30 capsule 2 025 2025 Active Trulicity 0.75 MG/0.5ML solution auto-injector INJECT ONE PEN (=0.75MG) SUBCUTANEOUSLY ONCE A WEEK DIRECTED 2 mL 025 Active Tresiba FlexTouch 100 UNIT/ML injection INJECT 48 UNITS SUBCUTANEOUSLY ONCE DAILY 15 mL 10 025 Active albuterol (Ventolin HFA) 108 (90 Base) MCG/ACT inhaler INHALE 2 PUFFS BY MOUTH EVERY 4 HOURS NEEDED FOR WHEEZING OR SHORTNESS OF BREATH 18 g 1 025 Active aspirin (Aspirin Low Dose) 81 MG EC tabletIndication s:Diabetic polyneuropathy associated with type 2 diabetes mellitus (CMS/HCC) Take 1 tablet (81 mg) by mouth Once per day. 90 tablet 3 025 Active Combivent Respimat 20-100 MCG/ACT inhaler INHALE 1 PUFF BY MOUTH EVERY 6 HOURS NEEDED FOR WHEEZING, RINSE MOUTH AFTER USING. 4 g 1 025 Active glucose blood (FREESTYLE LITE) test stripIndications :Type 2 diabetes mellitus with hyperglycemia (CMS/HCC) USE DIRECTED TO TEST BLOOD SUGAR THREE TIMES DAILY DIRECTED 100 strip 5 025 Active gabapentin (Neurontin) 800 MG tabletIndication s:Cervical radiculopathy TAKE 1 TABLET BY MOUTH THREE TIMES DAILY 90 tablet 3 025 Active insulin aspart FlexPen (NovoLOG) 100 UNIT/ML pen INJECT 10 UNITS SUBCUTANEOUSLY EVERY MORNING, 15 UNITS WITH LUNCH, AND 20 UNITS WITH DINNER 15 mL 3 025 Active polyethylene glycol, PEG, 3350 (MiraLax) 17 GM/SCOOP powderIndication s:Constipation, unspecified constipation type Take 17 g by mouth Once per day for 3 days. 527 g 2 025 2024 Active Continuous Glucose Surgery Teacher (FreeStyle Catrachita 3 [place]) deviceIndication s:Type 2 diabetes mellitus with unspecified complications (CMS/HCC) 1 each Once per day. Use as directed for CGM 1 each Active Continuous Glucose Sensor (FreeStyle Catrachita 3 Plus Sensor) miscIndications: Type 2 diabetes mellitus with unspecified complications (CMS/HCC) 1 each every 15 days. Apply 1 every 15 days as directed for CGM 2 each Active glucose blood (FreeStyle Precision Osmar Test) test stripIndications :Type 2 diabetes mellitus with unspecified complications (CMS/HCC) Use to test blood sugar 3 times daily in case of CGM failure or extremes of BG 100 each 025 2025 Active atorvastatin (Lipitor) 40 MG tablet Take 1 tablet (40 mg) by mouth at bedtime. 90 tablet 1 Active losartan (Cozaar) 50 MG tablet Take 1 tablet (50 mg) by mouth Once per day. 30 tablet 11 025 2025 Active losartan (Cozaar) 50 MG tablet Take 1 tablet (50 mg) by mouth in the morning. 30 tablet 024 2024 Discontinued(R eorder (will not trigger notification to Pharmacy)) atorvastatin (Lipitor) 40 MG tablet TAKE 1 TABLET BY MOUTH EVERY DAY AT BEDTIME 90 tablet 1 025 2024 Discontinued(R eorder (will not trigger notification to Pharmacy)) insulin aspart FlexPen (NovoLOG) 100 UNIT/ML pen [...] Encounters Date Type Department Care Team Description 05/18/2025 9:30 AM EDT Office Visit [facility] [address] [place] [address] Name, MD Beltran Type 2 diabetes mellitus with unspecified complications (CMS/HCC) (Primary Dx); Tobacco use disorder; Screen for colon cancer; Constipation, unspecified constipation type; Encounter for screening mammogram for malignant neoplasm of breast; Vaccine refused by patient 05/18/2025 Travel 05/17/2025 Telephone [facility] [address] [place] [address] Enrique Sims [place] CHART PREP 05/14/2025 Refill [facility] [address] [place] [address] Name, MD Beltran 04/08/2025 Refill [facility] [address] [place] [phone] Name, MD Beltran Cervical radiculopathy 03/16/2025 Refill [facility] [address] [place] [address] Name, MD Beltran Type 2 diabetes mellitus with hyperglycemia ([facility]/HCC) 03/13/2025 Refill [facility] [address] [place] [address] Name, MD Beltran 02/16/2025 8:00 AM EDT Office Visit [facility] [address] [place] [address] Jadyn Hope, DDS Edentulism (Primary Dx) from Last 3 [...] the past 12 months, has t he [employer] gas, oil or water company threatened to [...] Mass Index 35.02 05/18/2025 9:29 AM EDT Plan of Treatment Upcoming Encounters Date Type Department Care Team (Late st Contact Info) Description 06/15/2025 10:30 AM EDT Medication Management [facility] [address] [place] [address] Amina Singh, MichaelD [address] [place] [address] Health Maintenance Due Date Last Done Comments [...] 07/11/2024 07/11/2023, 07/30/2021 Diabetes: Foot Exam 09/24/2024 05/18/2025, 05/18/2025, 05/18/2025, Additional history exists DTaP/Tdap/Td Vaccines (2 - Td or Tdap) 10/11/2024 10/11/2014, 10/06/2000 COVID-19 Vaccine ( season) 2025 10/25/2021, 02/02/2021, 01/05/2021 Influenza Vaccine (#1) 2025 4, 08/18/2013, 06/22/2003 Diabetes: Hemoglobin A1C 08/17/2025 025, 10/29/2024, 12/26/2023, Additional history exists SDOH Screening 10/20/2025 10/20/2024 Lipid Panel 05/17/2026 05/17/2025, 07/02, 07/30/2021, Additional history exists Tobacco Screening 05/18/2026 05/18/2025 HIB Vaccines Aged Out No longer eligi [...] 2 diabetes mellitus with unspecified complications (CMS/HCC) LIPID PANEL, STANDARD Routine 05/17/2025 11:55 AM EDT Type 2 diabetes mellitus without complication, with long-term current use of insulin (CMS/[facility]) Primary hypertension COMPREHENSIVE METABOLIC PANEL Routine 05/17/2025 11:55 AM EDT Type 2 diabetes mellitus without complication, with long-term current use of insulin (CMS/HCC) Primary hypertension CBC WITH AUTO DIFFERENTIAL Routine 05/17/2025 11:55 AM EDT Type 2 diabetes mellitus without complication, with long-term current use of insulin (CMS/[facility]) Primary hypertension WAX TRY IN Routine 02/16/2025 8:00 AM EDT Edentulism ALBUMIN, RANDOM URINE W/CREATININE Routine 07/11/2023 11:48 AM EST Type 2 diabetes mellitus without complication, with long-term current use of insulin ([facility]) History of Helicobacter pylori infection MAMMOGRAM GENERIC Routine 12/13/2021 8:3 9 AM EDT PANORAMIC RADIOGRAPHIC IMAGE Routine 09/18/2016 12:00 AM EST PERIODIC ORAL EVALUATION - ESTABLISHED PATIENT Routine 09/18/2016 12:00 AM EST INTRAORAL - COMPLETE SERIES OF RADIOGRAPHIC IMAGES Routine 06/27/2014 12:00 AM EDT from Last 3 Months or Most Recently Relevant to Health Maintenance Results * (ABNORMAL) POCT Hgb A1c (05/18/2025 9:32 AM EDT) Hemoglobin A1C 8.4(A) 4.0 - 5.7 % QC Media Lot # [id number] Lot# Expiration Date [id number] Blood 05/18/2025 9:32 AM EDT us Beltran [...] TEST ENTER/EDIT OR DERABLES Final Result * CBC auto differential (05/17/2025 11:55 AM EDT) White Blood Count 9.7 4.8 - 10.8 X10*3/uL [facility] Red Blood Count 4.56 4.20 - 5.50 X10*6/uL [facility] Hemoglobin 13.7 12.0 - 16.0 g/dl [facility] Hematocrit 40.5 37.0 - 47.0 % [facility] Mean Corpuscular Volume 88.8 80.0 - 98.0 fL [facility] Mean Corpuscular Hemoglobin 30.0 27.0 - 33.0 pg [facility] Mean Corpuscular HGB Conc 33.8 31.0 - 35.0 g/dl [facility] Red Cell Distribution Width 12.4 11.0 - 16.0 % [facility] Platelet Count 249 160 - 400 X10*3/uL [facility] Mean Platelet Volume 11.2 9.4 - 12.3 fL [facility] Neutrophils Percent Auto 64.8 45 - 73 % [facility] Imm Gran Pct Auto 0.3 0.0 - 0.4 % [facility] Lymphocytes Percent Auto 25.4 20 - 40 % [facility] Monocytes Percent Auto 5.2 2 - 11 % [facility] Eosinophils Percent Auto 4.0 0 - 4 % [facility] Basophils Percent Auto 0.3 0 - 2 % [facility] NRBC Pct Auto 0.0 0.0 - 0.2 /100WBC [facility] Neutrophils Absolute Auto 6.3 2.0 - 8.3 x10*3/uL [facility] Imm Gran Abs Auto 0.03 0.00 - 0.03 X10*3/uL [facility] Lymphocytes Absolute Auto 2.5 1.2 - 4.9 X10*3/uL [facility] Monocytes Absolute Auto 0.5 0.1 - 1.2 X10*3/uL [facility] Eosinophils Absolute Auto 0.4 0.0 - 0.4 X10*3/uL [facility] Basophils Absolute Auto 0.0 0.0 - 0.2 X10*3/uL [facility] NRBC Abs Auto 0.000 0.0 - 0.012 X10*3/uL [facility] Blood Venous blood specimen / Unknown 05/17/2025:55 AM EDT 05/17/2025 1:13 PM EDT us Beltran Ramirez MD LAB BLOOD ORDERABLES Final Resul t Performing Organization Address [facility] [address]/[facility] Co de Phone Number [facility] [address] [place] [phone] * (ABNORMAL) Lipid Panel, Standard (05/17/2025 11:55 AM EDT) Triglycerides 133 <150 mg/dL [facility] Comment:Desirable Triglyceri de: less than 150 mg/dLBorderline High Triglyceride 150-199 mg/dLHigh Triglyceride: 200-499 mg/dLVery High Triglyceride: greater than or equal to 5OO mg/dL Cholesterol 139 <200 mg/dL [facility] Comment:Desirable Cholestero l: less than 200 mg/dLBorderline High Cholesterol: 200-239 mg/dLHigh Cholesterol: greater than 239 mg/dL LDL Cholesterol Calculated 84 <100 mg/dL [facility] Comment:Desirable LDL: less than 100 mg/dLNear Optimal/Above Optimal LDL: 110- 129 mg/dLBorderline High LDL: 130-159 mg/dLHigh LDL: 160-189 mg/dLVery High LDL: greater than or equal to 190 mg/dL HDL Cholesterol 29(L) >40 mg/dL [facility] Comment:Desirable HDL: great er than 40 mg/dL Note: This HDL assay may give artificially low results in patients with liver disease. Blood Venous blood specimen / Unknown 05/17/2025 11:55 AM EDT 05/17/2025 1:22 PM EDT us Beltran Ramirez MD LAB BLOOD ORDERABLES Final Resul t Performing Organization Address City/[facility] [address]/ZIP Co de Phone Number [facility] [address] [place] [phone] * (ABNORMAL) Comprehensive Metabolic Panel (05/17/2025 11:55 AM EDT) Sodium 136 135 - 145 mmol/L [facility] Potassium 4.4 3.3 - 5.1 mmol/L [facility] Chloride 102 96 - 108 mmol/L [facility] Carbon Dioxide 28 22 - 29 mmol/L [facility] Anion Gap 10(L) 12 - 20 [facility] Urea Nitrogen (BUN) 18(H) 9 - 16 mg/dL [facility] Creatinine, Serum 0.78 0.5 - 1.4 mg/dL [facility] Estimated Glomerular Filt Rate >60 [facility] Comment:Chronic Kidney Disea se: Estimated GFR < 60 mL/min/[id number] Kidney Disease: Estimated GFR < 15 mL/min/1.73m2 Glucose 271(H) 60 - 115 mg/dL [facility] Calcium 8.8 8.4 - 10.2 mg/dL [facility] Bilirubin, Total 0.5 0.0 - 1.0 mg/dL [facility] Aspartate Amino Transferase 23 5 - 31 U/L [facility] Alanine Aminotransferase 16 0 - 31 U/L [facility] Total Protein 7.3 6.5 - 8.0 g/dL [facility] Albumin Level 3.9 3.5 - 5.0 g/dL [facility] Alkaline Phosphatase 160(H) 39 - 117 U/L [facility] Blood Venous blood specimen / Unknown 05/17/2025 11:55 AM EDT 05/17/2025 1:22 PM EDT us Beltran Name LAB BLOOD ORDERABLES Final Resul t [facility] [address] [place] [phone] * (ABNORMAL) Albumin, Random Urine W/Creatinine (07/11/2023 11:48 AM EST) Creatinine, Urine 228.92 mg/dL [facility] Microalbumin Urine 109.0 mg/L [facility] Microalbum Creatinine Ratio Ur 47.6(H) <30 ug/mg cr [facility] Comment:Albumin/Creatinine R atio Reference Ranges: Normal: < 30 ug/mg creatinine Microalbuminuria: 30 - 300 ug/mg creatinineClinical Albuminuria: > 300 ug/mg creatinine Urine 07/11/2023 11:4 8 AM EST 07/11/2023 1:19 PM EST us Beltran Ramirez MD LAB URINE ORDERABLES Final Resul t [facility] [address] [place] [phone] * Mammography Report 1 (12/13/2021 8:39 AM EDT) Anatomical Region Laterality Modality Breast Bilateral Mammography 12/13/2021 8:39 AM EDT Narrative 12/14/2021 1:54 PM EDT Refer to the Notes tab for result details [facility] Procedure: Mammography Report 1 Procedure Note Provider, MD Janna - 11/24/2022 Refer to the Notes tab for result details [facility] Procedure: Mammography Report 1 Beltran Ramirez MD IMG BI PROCEDURES Final Result from Last 3 Months or Most Recently Relevant to Health Maintenance Insurance [facility] STANDARD [facility]ICARE [facility] ST[facility] AD[facility] Care Teams General Scrap Worker Relationship Specialty Start Date End Date Name, MD Beltran [address] [place] [phone] PCP - General Family Medicine 12/05/15
--- OUTSIDE RECORDS SUMMARY | 2025-05-18 10:05 | XMS_ITS | Encounter Summary ---
Author Organization [employer] Address [address] [facility] 7t [place] [address] Care Team Providers Care Morgue Librarian Name Role Phone Name, Beltran LEACH Primary Care Provider [phone] Encounter Details Date Type Department Care Team (Late Contact Info) Description 02/11/2023 Abstract [facility] [address] [place] [phone] Name, MD Beltran [address] [place] [phone] Social History Tobacco Use Types Packs/Day Years [...] Description 06/15/2025 10:30 AM EDT Medication Management [facility] [address] [place] [phone] Puia, Amina, PharmD [address] [place] [address] documented as of this encounter Visit Diagnoses Not on filedocumented in this encounter Care Teams Morgue Librarian Relationship Specialty Start Date End Date Name, MD Beltran [address] [place] [phone] PCP - General Family Medicine 12/05/15 documented as of this encounter
--- OUTSIDE RECORDS SUMMARY | 2025-05-18 10:05 | XMS_ITS | Encounter Summary ---
Author Organization [employer] Address [address] [facility] 7t [place] [address] Care Team Providers Care Hand Stamper Name Role Phone Name, Beltran LEACH Primary Care Provider [phone] Reason for Visit * Reason Onset Date Comments Reschedule 11/26/2023 Encounter Details Date Type Department Care Team ([facility] Contact Info) Description 11/26/2023 Telephone [facility] [address] [place], [place] [phone] Name, MD Beltran [address] [place] [address] Reschedule Social History Tobacco Use Types Packs/Day [...] Miscellaneous Notes * Telephone Encounter - Donna Vamshi - 11/26/2023 9:41 AM EDT Tc from pt requesting to reschedule 11/23 follow up appointment. Body Man attempted to schedule but noavailability. Please contact pt at [phone] documented in this encounter Plan of Treatment Upcoming Encounters Date Type Department Care Team (Late st Contact Info) Description 06/15/2025 10:30 AM EDT Medication Management [facility] [address] [place] [address] Amina Singh, PharmD [address] [place] [address] documented as of this encounter Visit Diagnoses Not on filedocumented in this encounter Additional Health Concerns Assessment Noted Time PHQ-9 Depression Total Score: 0 04/11/20 23 10:05 AM EDT documented as of this encounter Care Teams Hand Stamper Relationship Specialty Start Date End Date Name, MD Beltran [address] [place] [address] PCP - General Family Medicine 12/05/15 documented as of this encounter
--- OUTSIDE RECORDS SUMMARY | 2025-05-18 10:05 | XMS_ITS | Encounter Summary ---
Author Organization [employer] Address [address] [facility] 7t [place] [address] Care Team Providers Care Merchandiser Retail Representative Name Role Phone Name, Beltran LEACH Primary Care Provider [phone] Reason for Visit * Reason Comments Med Refill Encounter Details Date Type Department Care Team ([facility] st Contact Info) Description 10/23/2023 Refill [facility] [address] [place], [place] [phone] Name, MD Beltran [address] [place] [address] Social History Tobacco Use Types Packs/Day Years [...] Description 06/15/2025 10:30 AM EDT Medication Management [facility] [address] [place] [address] Amina Singh, PharmD [address] [place] [address] documented as of this encounter Visit Diagnoses Not on filedocumented in this encounter Additional Health Concerns Assessment Noted Time PHQ-9 Depression Total Score: 0 04/11/20 23 10:05 AM EDT documented as of this encounter Care Teams Merchandiser Retail Representative Relationship Specialty Start Date End Date Name, MD Beltran [address] [place] [address] PCP - General Family Medicine 12/05/15 documented as of this encounter
--- OUTSIDE RECORDS SUMMARY | 2025-05-18 10:05 | XMS_ITS | Encounter Summary ---
Author Organization [employer] Address 75 [facility] 7t [place] [address] Care Team Providers Care Livestock Yard Supervisor Name Role Phone Name, Beltran LEACH Primary Care Provider [phone] Reason for Visit * Reason Onset Date Comments Med Refill 01/03/2023 Encounter Details Date Type Department Care Team ([facility] st Contact Info) Description 01/03/2023 Telephone [facility] [address] [place] [address] [phone] Name, MD Beltran [address] [place] [address] Med Refill Social History Tobacco Use Types [...] 1:02 PM EDT Medication was sent to [facility] on 12/20/22 with 5 refills. * Telephone Encounter - Sabrina Buchanan - 01/03/2023 11:52 AM EDT Tc from pt requesting med refill for medication insulin degludec (Tresiba) 100 UNIT/ML injection. documented in this encounter Plan of Treatment Upcoming Encounters Date Type Department Care Team (Late st Contact Info) Description 06/15/2025 10:30 AM EDT Medication Management [facility] [address] [place] [address] Amina Singh, PharmD [address] [place], [place] [phone] documented as of this encounter Visit Diagnoses Not on filedocumented in this encounter Care Teams Livestock Yard Supervisor Relationship Specialty Start Date End Date Name, MD Beltran [address] [place], [place] [phone] PCP - General Family Medicine 12/05/15 documented as of this encounter
--- OUTSIDE RECORDS SUMMARY | 2025-05-18 10:05 | XMS_ITS | Encounter Summary ---
Author Organization [employer] Address 75 [facility] 7t [place] [address] Care Team Providers Care Health Promotion Educator Name Role Phone Name, Beltran LEACH Primary Care Provider Reason for Visit * Reason Comments Med Refill Encounter Details Date Type Department Care Team ([facility] st Contact Info) Description 05/14/2025 Refill [facility] [address] [place], [place] [phone] Name, MD Beltran [address] [place] [address] Social History Tobacco Use Types Packs/Day Years [...] Description 06/15/2025 10:30 AM EDT Medication Management [facility] [address] [place] [address] Amina Singh, PharmD [address] [place] [address] documented as of this encounter Visit Diagnoses Not on filedocumented in this encounter Additional Health Concerns Assessment Noted Time PHQ-9 Depression Total Score: 0 04/11/20 23 10:05 AM EDT documented as of this encounter Care Teams Health Promotion Educator Relationship Specialty Start Date End Date Name, MD Beltran [address] [place] [address] PCP - General Family Medicine 12/05/15 documented as of this encounter
--- OUTSIDE RECORDS SUMMARY | 2025-05-18 10:05 | XMS_ITS | Encounter Summary ---
Author Organization [employer] Address [address] [facility] [address] 7[address] [place] [address] Care Team Providers Care Painting Worker Name Role Phone Name, Beltran LEACH Primary Care Provider [phone] Reason for Visit * Reason Onset Date Comments CHART PREP 05/17/2025 Encounter Details Date Type Department Care Team ([facility] st Contact Info) Description 05/17/2025 Telephone [facility] [address] [place], [place] [phone] Enrique Sims [place] CHART PREP Social History [...] Description 06/15/2025 10:30 AM EDT Medication Management [facility] [address] [place] [address] Amina Singh, PharmD [address] [place] [address] documented as of this encounter Visit Diagnoses Not on filedocumented in this encounter Additional Health Concerns Assessment Noted Time PHQ-9 Depression Total Score: 0 04/11/20 23 10:05 AM EDT documented as of this encounter Care Teams Painting Worker Relationship Specialty Start Date End Date Name, MD Beltran [address] [place] [address] PCP - General Family Medicine 12/05/15 documented as of this encounter
--- OUTSIDE RECORDS SUMMARY | 2025-05-18 10:05 | XMS_ITS | Encounter Summary ---
Author Organization [employer] Address [address] [facility] 7t [place] [address] Care Team Providers Care Student Success Coach Name Role Phone Name, Beltran LEACH Primary Care Provider [phone] Reason for Visit * Reason Comments Med Refill Encounter Details Date Type Department Care Team ([facility] Contact Info) Description 10/02/2023 Refill [facility] [address] [place], [place] [phone] Yoni Ann MD [address] [place] [address] Social History Tobacco Use Types Packs/Day Years [...] Description 06/15/2025 10:30 AM EDT Medication Management [facility] [address] [place] [address] Amina Singh, PharmD [address] [place] [address] documented as of this encounter Visit Diagnoses Not on filedocumented in this encounter Additional Health Concerns Assessment Noted Time PHQ-9 Depression Total Score: 0 04/11/20 23 10:05 AM EDT documented as of this encounter Care Teams Student Success Coach Relationship Specialty Start Date End Date Name, MD Beltran [address] [place] [address] PCP - General Family Medicine 12/05/15 documented as of this encounter
[2025-05-18 12:02] LABS: Microalbum/Creatinine Ratio Ur 36.5 ug/mg cr (<30)
== END 2025-05-18 08:41 | disposition home or self-care (01) ==
LOC: HO.HHCL 08:40
PROVIDERS: PCP Internal Medicine Geriatric Medicine; Visit Provider Internal Medicine Geriatric Medicine
DX: E11.9 Type 2 diabetes mellitus without complications (principal); I10 Essential (primary) hypertension; Z79.4 Long term (current) use of insulin
CPT/HCPCS: 82043; 82570

== ENCOUNTER 2025-05-31 13:01 | Outpatient (REF) | payer MEDICARE, MEDICAID, SELFPAY ==
--- OUTSIDE RECORDS SUMMARY | 2025-05-31 13:00 | XMS_ITS | Encounter Summary ---
Author Organization [employer] Address [address] [facility] 7t [place] [address] Care Team Providers Care Farm Owner Operator Name Role Phone Name, Beltran LEACH Primary Care Provider [phone] Reason for Referral * Consultation (Routine) - Pending Review Specialty Diagnoses / Procedures Referred By Nia preston Referred To Contact Gastroenterology Diagnoses Acute vomiting Class 2 severe obesity with serious comorbidity and body mass index (BMI) of 35.0 to 35.9 in adult, unspecified obesity type Jana Alamo NP [address] [place] [address] Phone: tel: fax: Referral ID Status Reason Start Date Expiration Date Visits Requested Visits Authorized [id number] Pending Review Specialty Services Required 05/31/2025 05/31/2026 1 1 Encounter Details Date Type Department Care Team ([facility] st Contact Info) Description 05/31/2025 1:00 PM EDT Office Visit [facility] MEDICINE [address] [place], [place] [phone] Jana Alamo NP [address] [place], [place] [phone] Acute vomiting (Primary Dx); Class 2 severe obesity with serious comorbidity and body mass index (BMI) of 35.0 to 35.9 in adult, unspecified obesity type (CMS/HCC) Social History Tobacco Use Types Packs/Day Years [...] Sign Reading Time Taken Comments Blood Pressure 115/62 05/31/2025 11:54 AM EDT Pulse 68 05/31/2025 11:54 AM EDT Temperature 36.1 C (97 F) 05/31/2025 11:54 AM EDT Respiratory Rate 16 05/31/2025 11:54 AM EDT Oxygen Saturation 98% 05/31/2025 11:54 AM EDT Inhaled Oxygen Concentration - - Weight 92.5 kg (204 lb) 05/31/2025 11:54 AM EDT Height 162.6 cm (5' 4 ) 05/31/2025 11:54 AM EDT Body Mass Index 35.02 05/31/2025 11:54 AM EDT documented in this encounter Progress Notes * Jana Alamo LAURY - 05/31/2025 1:00 PM EDT Rayna Cavazos is a 60 y.o. female who presents to the office for No chief complaint on file. Problem List[1] Medical History[2] Allergies[3] Rayna Cavazos, 60-year-old female - Nausea onset 3 days ago - Vomiting of recently eaten food, began after eating fish and plantain, started 3 days ago - Epigastric abdominal pain - Occasional acid reflux symptoms - Occasional bloating, stomach making loud noises - Occasional sore throat, denies exposure to sick contacts - Denies constipation, diarrhea, blood in stool - Feels weak - History of vomiting episode a couple years ago, previously tested positive for H. pylori twice - History of endoscopy approximately 3 years ago - Was prescribed omeprazole for acid symptoms, stopped taking due to lack of efficacy - Took aspirin for pain this morning - Took two drags of cannabis yesterday to fall asleep, did not cause vomiting - Reports rash with naproxen - Type 2 diabetes, currently using Trulicity, no new side effects - Blood sugar 94 this morning Review of Systems Constitutional: Positive for appetite change. Negative for activity change. Cardiovascular: Negative for chest pain. Gastrointestinal: Positive for abdominal pain, nausea and vomiting. Negative for blood in stool, constipation and diarrhea. BP 115/62 (BP Location: Left arm, Patient Position: Sitting, BP Cuff Size: Adult long) Pulse 68 Temp 97 ??F (36.1 ??C) (Oral) Resp 16 Ht 5' 4 (1.626 m) Wt 204 lb (92.5 kg) SpO2 98% BMI35.02 kg/m?? Physical Exam Vitals reviewed. HENT: Head: Normocephalic and atraumatic. Nose: Nose normal. Eyes: Conjunctiva/sclera: Conjunctivae normal. Cardiovascular: Rate and Rhythm: Normal rate and regular rhythm. Pulmonary: Effort: Pulmonary effort is normal. Breath sounds: Normal breath sounds. Abdominal: Palpations: Abdomen is soft. There is no mass. Tenderness: There is abdominal tenderness. There is no guarding or rebound. Musculoskeletal: Cervical back: Normal range of motion and neck supple. Neurological: General: No focal deficit present. Mental Status: She is alert. - ABDOMEN: Abdominal examination reveals no specific abnormalities. Results: Orders Only on 05/18/2025 Component Date Value Ref Range Status Creatinine, Urine 05/18/2025 410.06 mg/dL Final Microalbumin Urine 05/18/2025 150.0 mg/L Final Microalbum Creatinine Ratio Ur 05/18/2025 36.5 (H) <30 ug/mg cr Final Albumin/Creatinine Ratio Reference Ranges: Normal: < 30 ug/mg creatinine Microalbuminuria: 30 - 300 ug/mg creatinineClinical Albuminuria: > 300 ug/mg creatinine Office Visit on 05/18/2025 Component Date Value Ref Range Status Glucose Blood, POC 05/18/2025 184 60 - 200 mg/dL Final QC Media Lot # 05/18/2025 [id number] Final Lot# Expiration Date 05/18/2025 31,126 Final Hemoglobin A1C 05/18/2025 8.4 (A) 4.0 - 5.7 % Final QC Media Lot # 05/18/2025 [id number] Final Lot# Expiration Date 05/18/2025 22,427 Final Assessment & Plan Acute vomiting Orders: Comprehensive Metabolic Panel; Future CBC auto differential; Future Amylase; Future Lipase; Future Referral to Gastroenterology; Future Helicobacter pylori, Urea Breath Test; Future Class 2 severe obesity with serious comorbidity and body mass index (BMI) of 35.0 to 35.9 in adult,unspecified obesity type Orders: Referral to Gastroenterology; Future Assessment & Plan Acute vomiting: - Acute vomiting likely related to gastrointestinal etiology. Differential includes gastroesophageal reflux disease (GERD), peptic ulcer disease, gastroparesis, and Helicobacter pylori infection. Less likely etiologies include gallbladder or pancreatic pathology. Trulicity-induced gastroparesis considered but deemed unlikely due to chronic use without prior side effects. - Ordered H. pylori breath test. Ordered blood work to evaluate liver, kidney, and pancreatic function. Prescribed pantoprazole for acid suppression, ondansetron for nausea, and sucralfate for gastric mucosal protection. Advised to avoid aspirin and NSAIDs; recommended acetaminophen for pain. Referral to gastroenterology for further evaluation of gastric motility and possible endoscopy if symptoms persist or worsen. Imaging of abdomen to be considered if pain increases or localizes. - Risks and side effects: Discussed potential for antacids and sucralfate to interfere with absorption of other medications; instructed to separate administration by at least one hour. Class 2 severe obesity with serious comorbidity and body mass index (BMI) of 35.0 to 35.9 in adult,unspecified obesity type: - Class 2 severe obesity with associated comorbidities. Prescription - Pantoprazole, daily every morning - Ondansetron (Zofran) for nausea, as prescribed - Sucralfate (Carafate) tablets, 4 times daily as needed, 30 minutes before meals and 1 hour beforeother medications - Acetaminophen (Tylenol) for pain instead of NSAIDs or aspirin to avoid gastric irritation Current Medications[4] Based on our discussion, I have outlined the following instructions for you: - Get a breath test for Helicobacter pylori as ordered. - Get blood tests to check your liver, kidney, and pancreas. - Take pantoprazole to help reduce stomach acid, ondansetron to help with nausea, and sucralfate toprotect your stomach lining, as prescribed. - Do not take aspirin or non-steroidal anti-inflammatory drugs (like ibuprofen). If you need pain relief, use acetaminophen. - If your symptoms do not get better or get worse, you will be referred to a stomach specialist formore tests, which may include looking inside your stomach with a camera. - If your pain gets worse or is focused in one area, you may need an imaging test of your abdomen. - If you are taking antacids or sucralfate along with other medications, make sure to take them at least one hour apart from your other medicines. Thank you again for your visit, and we look forward to supporting you in your journey to better health. This note was drafted using Ambient (AI) technology. The patient/patient's guardian has been informed and has consented to the use of this technology: Yes [1] Patient Active Problem List Diagnosis Backache Bilateral arm weakness Carpal tunnel syndrome Cervical radiculopathy Osteoarthritis of spine with radiculopathy, cervical region Chronic neck pain Chronic obstructive lung disease (CMS/HCC) Depressive disorder Diabetic neuropathy (CMS/HCC) Type 2 diabetes mellitus (CMS/HCC) Diabetic retinopathy associated with type 2 diabetes mellitus (CMS/HCC) Spinal stenosis in cervical region Pain in left arm Hyperlipidemia Shoulder pain Polyneuropathy due to type 2 diabetes mellitus (CMS/HCC) Uterine leiomyoma Other chest pain Primary hypertension Dental abscess Periodontal disease Dental caries Acute vomiting Class 2 severe obesity with serious comorbidity and body mass index (BMI) of 35.0 to 35.9 in adult (CMS/[facility]) [2] Past Medical History: Diagnosis Date Asthma Diabetes mellitus ([facility]) Hypertension [3] Allergies Allergen Reactions Naproxen Other reaction(s): rash and swelling Metformin Other reaction(s): Upset stomach [4] Current Outpatient Medications: acetaminophen (Tylenol Extra Strength) 500 MG tablet, Take 2 tablets (1,000 mg) by mouth every 8 (eight) hours if needed for mild pain for up to 10 days., Disp: 30 tablet, Rfl: 0 albuterol (Ventolin HFA) 108 (90 Base) MCG/ACT inhaler, INHALE 2 PUFFS BY MOUTH EVERY 4 HOURS NEEDED FOR WHEEZING OR SHORTNESS OF BREATH, Disp: 18 g, Rfl: 1 Alcohol Swabs (Alcohol Prep) pads, Use prior to insulin injections and glucose checks, Disp: , Rfl: aspirin (Aspirin Low Dose) 81 MG EC tablet, Take 1 tablet (81 mg) by mouth Once per day., Disp: 90 tablet, Rfl: 3 atorvastatin (Lipitor) 40 MG tablet, Take 1 tablet (40 mg) by mouth at bedtime., Disp: 90 tablet, Rfl: 1 Blood Glucose Monitoring Suppl (FreeStyle glucose monitoring) kit, 1 each if needed., Disp: , Rfl: buPROPion XL (Wellbutrin XL) 300 MG 24 hr tablet, Take 1 tablet by mouth in the morning., Disp: , Rfl: chlorhexidine (Peridex) 0.12 % solution, Swish 15 mL morning and night for 1 minute. Spit, do not swallow. Do not eat or drink for 30 minutes following use., Disp: 473 mL, Rfl: 0 clonazePAM (KlonoPIN) 1 MG tablet, TAKE 1 TABLET BY MOUTH THREE TIMES DAILY NEEDED, Disp: , Rfl: Combivent Respimat 20-100 MCG/ACT inhaler, INHALE 1 PUFF BY MOUTH EVERY 6 HOURS NEEDED FOR WHEEZING, RINSE MOUTH AFTER USING., Disp: 4 g, Rfl: 1 Continuous Glucose Surgical Garment Assembly Supervisor (FreeStyle Catrachita 3 Mary Alice) device, 1 each Once per day. Use as directedfor CGM, Disp: 1 each, Rfl: 0 Continuous Glucose Sensor (FreeStyle Catrachita 3 Plus Sensor) misc, 1 each every 15 days. Apply 1 every15 days as directed for CGM, Disp: 2 each, Rfl: 11 FreeStyle lancets, 1 each by Other route 3 times daily., Disp: 100 each, Rfl: 11 gabapentin (Neurontin) 800 MG tablet, TAKE 1 TABLET BY MOUTH THREE TIMES DAILY, Disp: 90 tablet, Rfl: 3 glucose blood (FREESTYLE LITE) test strip, USE DIRECTED TO TEST BLOOD SUGAR THREE TIMES DAILY ASDIRECTED, Disp: 100 strip, Rfl: 5 glucose blood (FreeStyle Precision Osmar Test) test strip, Use to test blood sugar 3 times daily in case of CGM failure or extremes of BG, Disp: 100 each, Rfl: 11 insulin aspart FlexPen (NovoLOG) 100 UNIT/ML pen, INJECT 10 UNITS SUBCUTANEOUSLY EVERY MORNING, 15 UNITS WITH LUNCH, AND 20 UNITS WITH DINNER, Disp: 15 mL, Rfl: 3 loperamide (Imodium) 2 MG capsule, Take 2 capsules by mouth., Disp: , Rfl: losartan (Cozaar) 50 MG tablet, Take 1 tablet (50 mg) by mouth Once per day., Disp: 30 tablet, Rfl:11 meclizine (Antivert) 25 MG tablet, Take 1 tablet by mouth every 8 (eight) hours., Disp: , Rfl: metoprolol succinate XL (Toprol-XL) 25 MG 24 hr tablet, Take 25 mg by mouth Once per day., Disp: , Rfl: Nebulizer misc, Use as directed with duoneb and albuterol, Disp: , Rfl: nicotine (Nicoderm CQ) 21 MG/24HR patch, Place 1 patch on the skin 1 (one) time each day at the same time., Disp: 30 patch, Rfl: 2 Novofine Pen Needle 32G X 6 MM misc, USE FOUR TIMES DAILY WITH INSULIN, Disp: 100 each, Rfl: 3 ondansetron (Zofran) 4 MG tablet, Take 2 tablets (8 mg) by mouth every 8 (eight) hours if needed for nausea or vomiting for up to 7 days., Disp: 20 tablet, Rfl: 0 pantoprazole (Protonix) 40 MG EC tablet, Take 1 tablet (40 mg) by mouth before breakfast. Do not crush, chew, or split., Disp: 30 tablet, Rfl: 1 pen needle 32G x 4 mm misc, Use four times per day with insulinInject under the skin. Use four times per day with insulin, Disp: 100 each, Rfl: 11 Spacer/Aero-Holding Chambers (OptiChamber Brenda) misc, 1 each every 4 (four) hours if needed (asthma)., Disp: 1 each, Rfl: 0 sucralfate (Carafate) 1 g tablet, Take 1 tablet (1 g) by mouth before breakfast, before lunch, before evening meal, and at bedtime for 10 days., Disp: 40 tablet, Rfl: 0 Tresiba FlexTouch 100 UNIT/ML injection, INJECT 48 UNITS SUBCUTANEOUSLY ONCE DAILY, Disp: 15 mL, Rfl: 10 TRUEplus Lancets 33G misc, TEST BLOOD SUGAR THREE TIMES DAILY, Disp: 200 each, Rfl: 5 Trulicity 0.75 MG/0.5ML solution auto-injector, INJECT ONE PEN (=0.75MG) SUBCUTANEOUSLY ONCE A WEEKAS DIRECTED, Disp: 2 mL, Rfl: 11 valACYclovir (Valtrex) 1 g tablet, Take 1 tablet by mouth every 8 (eight) hours., Disp: , Rfl: zolpidem (Ambien) 10 MG tablet, Take 10 mg by mouth if needed at bedtime., Disp: , Rfl: documented in this encounter Miscellaneous Notes * Assessment & Plan Note - Jana Alamo NP - 05/31/2025 1:00 PM EDTAssociated Problem(s): Acute vomiting Orders: Comprehensive Metabolic Panel; Future CBC auto differential; Future Amylase; Future Lipase; Future Referral to Gastroenterology; Future Helicobacter pylori, Urea Breath Test; Future * Assessment & Plan Note - Jana Alamo NP - 05/31/2025 1:00 PM EDTAssociated Problem(s): Class 2 severe obesity with serious comorbidity and body mass index (BMI) of35.0 to 35.9 in adult ([facility]) Orders: Referral to Gastroenterology; Future documented in this encounter Plan of Treatment Upcoming Encounters Date Type Department Care Team (Late st Contact Info) Description 06/01/2025 11:00 AM EDT Clinical Support [address] [address] 06/15/2025 10:30 AM EDT Medication Management [address] [address] Puia, Amina, PharmD [address] [place] [phone] Scheduled Orders Name Type Priority Associated Diagnoses Orde r Schedule Comprehensive Metabolic Panel Lab Routine Acute vomiting Expected: 05/31/2025 (Approximate), Expires: 05/31/2026 CBC auto differential Lab Routine Acute vomiting Expected: 05/31/2025 (Approximate), Expires: 05/31/2026 Amylase Lab Routine Acute vomiting Expected: 05/31/2025 (Approximate), Expires: 05/31/2026 Lipase Lab Routine Acute vomiting Expected: 05/31/2025, Expires: 05/31/2026 Helicobacter pylori, Urea Breath Test Lab Routine Acute vomiting Expected: 05/31/2025 (Approximate), Expires: 05/31/2026 Scheduled Referrals Name Type Priority Associated Diagnoses Order Schedule Referral to Gastroenterology Outpatient Referral Routine Acute vomiting Class 2 severe obesity with serious comorbidity and body mass index (BMI) of 35.0 to 35.9 in adult, unspecified obesity type (CMS/[facility]) Expected: 05/31/2025 (Approximate), Expires: 05/31/2026 documented as of this encounter Visit Diagnoses Diagnosis Acute vomiting- Primary Class 2 severe obesity with serious comorbidity and body mass index (BMI) of 35.0 to 35.9 in adult, unspecified obesity type documented in this encounter Additional Health Concerns Assessment Noted Time PHQ-9 Depression Total Score: 0 04/11/20 23 10:05 AM EDT documented as of this encounter Care Teams Farm Owner Operator Relationship Specialty Start Date End Date Name, MD Beltran [address] [place] [address] PCP - General Family Medicine 12/05/15 documented as of this encounter
--- OUTSIDE RECORDS SUMMARY | 2025-05-31 14:13 | XMS_ITS | Encounter Summary ---
Author Organization [employer] Address [address] [facility] 7t [place] [address] Care Team Providers Care Roofing Subcontractor Name Role Phone Name, Beltran LEACH Primary Care Provider [phone] Encounter Details Date Type Department Care Team (Latest Contact Info) Description 05/31/2025 Travel Social History Tobacco Use Types Packs/Day [...] Description 06/01/2025 11:00 AM EDT Clinical Support [address] [address] 06/15/2025 10:30 AM EDT Medication Management [address] [address] Amina Singh, PharmD [address] [place] [phone] documented as of this encounter Visit Diagnoses Not on filedocumented in this encounter Additional Health Concerns Assessment Noted Time PHQ-9 Depression Total Score: 0 04/11/20 23 10:05 AM EDT documented as of this encounter Care Teams Roofing Subcontractor Relationship Specialty Start Date End Date Name, MD Beltran [address] [place] [phone] PCP - General Family Medicine 12/05/15 documented as of this encounter
--- OUTSIDE RECORDS SUMMARY | 2025-05-31 14:13 | XMS_ITS | Encounter Summary ---
Author Organization [employer] Address [address] [facility] 7t [place] [address] Care Team Providers Care Cotton Wringer Name Role Phone Name, Beltran LEACH Primary Care Provider [phone] Reason for Visit * Reason Onset Date Comments Appointment 05/26/2025 Encounter Details Date Type Department Care Team ([facility] st Contact Info) Description 05/26/2025 Telephone [facility] MEDICINE [address] [place], [place] [phone] Name, MD Beltran [address] [place] [address] Appointment Social History Tobacco Use Types Packs/Day Years Used Date Smoking Tobacco: Every Day Cigarettes Alcohol Use Standard Drinks/Week Comments Never 0 (1 standard drink = 0.6 oz pur e alcohol) Depression Answer Date Recorded Patient Health Questionnaire-9 Score 0 04/11/2023 Housing Stability Answer Date Recorded What is your housing situation today? I have oral or 10/20/[address] you li [...] the past 12 months, has t he [place], gas, oil or water company threatened to [...] encounter Miscellaneous Notes * Telephone Encounter - Becca Hart RN - 05/26/2025 10:31 AM EDT TC placed to pt to schedule CGM teaching appointment with Blue team nurses. Pt booked for CGM teaching on 06/01/25 at 11:00 AM. Pt advised to go to pharmacy to sisal picker CGM supplies before appointment and bring supplies to appointment. Pt verbalized understanding and denies questions at this time. TC placed to pharmacy at [phone] to inform of appointment date and time. Spoke with Vikas in the pharmacy. Advised Vikas pt booked with blue team nurses on 06/01/25 at 11:00 AM. Vikas verbalized understanding. ----- Message from Amina Singh sent at 05/26/2025 8:49 AM EDT ----- Regarding: CGM teach needed Hello! I received a message from pharmacy that they are all set with the med B form and patient can sisal picker CGM Rxs at any time. She is new to CGM and needs a teaching apt. Can you please contact her to schedule this with you? I am seeing her as a new patient on 06/15 so if she could come for teaching next week or so that would be great & allow us to review some sensor data in my visit. Once scheduled, please call pharmacy at [phone] and let them know the date of the appointment. Thank you! documented in this encounter Plan of Treatment Upcoming Encounters Date Type Department Care Team (Late st Contact Info) Description 06/01/2025 11:00 AM EDT Clinical Support [address] [address] 06/15/2025 10:30 AM EDT Medication Management [address] [address] Amina Singh, MichaelD [address] [place] [phone] documented as of this encounter Visit Diagnoses Not on filedocumented in this encounter Additional Health Concerns Assessment Noted Time PHQ-9 Depression Total Score: 0 04/11/20 23 10:05 AM EDT documented as of this encounter Care Teams Cotton Wringer Relationship Specialty Start Date End Date Name, MD Beltran [address] [place] [phone] PCP - General Family Medicine 12/05/15 documented as of this encounter
--- OUTSIDE RECORDS SUMMARY | 2025-05-31 14:13 | XMS_ITS | Encounter Summary ---
Author Organization [employer] Address [address] [facility] 7t [place] [address] Care Team Providers Care Burr Mill Operator Name Role Phone Name, Beltran LEACH Primary Care Provider [phone] Reason for Visit * Reason Onset Date Comments Med Refill 01/03/2023 Encounter Details Date Type Department Care Team ([facility] st Contact Info) Description 01/03/2023 Telephone [facility] MEDICINE [address] [place] [phone] Name, MD Beltran [address] [place] [address] Med Refill Social History Tobacco Use Types [...] 1:02 PM EDT Medication was sent to [facility] Pharm[facility] on 12/20/22 with 5 refills. * Telephone Encounter - Sabrina Buchanan - 01/03/2023 11:52 AM EDT Tc from pt requesting med refill for medication insulin degludec (Tresiba) 100 UNIT/ML injection. documented in this encounter Plan of Treatment Upcoming Encounters Date Type Department Care Team (Late st Contact Info) Description 06/01/2025 11:00 AM EDT Clinical Support [address] [address] 06/15/2025 10:30 AM EDT Medication Management [address] [address] Amina Singh, PharmD [address] [place] [phone] documented as of this encounter Visit Diagnoses Not on filedocumented in this encounter Care Teams Burr Mill Operator Relationship Specialty Start Date End Date Name, MD Beltran [address] [place] [phone] PCP - General Family Medicine 12/05/15 documented as of this encounter
--- OUTSIDE RECORDS SUMMARY | 2025-05-31 14:13 | XMS_ITS | Encounter Summary ---
Author Organization [employer] Address [address] [place] [address] 7 [place] [address] Care Team Providers Care Tire Specialist Name Role Phone Name, Beltran LEACH Primary Care Provider [phone] Encounter Details Date Type Department Care Team (Late st Contact Info) Description 01/24/2023 [facility] Health Information Management [address] [place] [address] Name, MD Beltran [address] [place] [phone] Social History Tobacco Use Types Packs/Day Years [...] Description 06/01/2025 11:00 AM EDT Clinical Support [facility] MEDICINE [address] [place] [phone] 06/15/2025 10:30 AM EDT Medication Management [facility] MEDICINE [address] [place] [address] Amina Singh, MichaelD [address] [place] [phone] documented as of this encounter Visit Diagnoses Not on filedocumented in this encounter Care Teams Tire Specialist Relationship Specialty Start Date End Date Name, MD Beltran [address] [place] [address] PCP - General Family Medicine 12/05/15 documented as of this encounter
--- OUTSIDE RECORDS SUMMARY | 2025-05-31 14:13 | XMS_ITS | Encounter Summary ---
Author Organization [employer] Address [address] [facility] 7t [place] [address] Care Team Providers Care Log Grader Name Role Phone Name, Beltran LEACH Primary Care Provider [phone] Encounter Details Date Type Department Care Team (Late st Contact Info) Description 02/11/2023 Abstract [facility] MEDICINE [address] [place] [phone] Name, MD Beltran [address] [place] [address] Social History Tobacco Use Types Packs/Day Years [...] Description 06/01/2025 11:00 AM EDT Clinical Support [address] [address] 06/15/2025 10:30 AM EDT Medication Management [address] [address] Amina Singh PharmD [address] [place] [phone] documented as of this encounter Visit Diagnoses Not on filedocumented in this encounter Care Teams Log Grader Relationship Specialty Start Date End Date Name, MD Beltran [address] [place] [address] PCP - General Family Medicine 12/05/15 documented as of this encounter
--- OUTSIDE RECORDS SUMMARY | 2025-05-31 14:14 | XMS_ITS | Encounter Summary ---
Author Organization [employer] Address 75 [facility] 7t [place] [address] Care Team Providers Care Facility Examiner Name Role Phone Name, Beltran LEACH Primary Care Provider [phone] Reason for Visit * Reason Comments Med Refill Encounter Details Date Type Department Care Team ([facility] st Contact Info) Description 10/23/2023 Refill [facility] [address] [place], [place] [phone] Name, MD Beltran [address] [place] [address] Social History Tobacco Use Types Packs/Day Years [...] Description 06/01/2025 11:00 AM EDT Clinical Support [address] [address] 06/15/2025 10:30 AM EDT Medication Management [address] [address] Amina Singh, PharmD [address] [place] [phone] documented as of this encounter Visit Diagnoses Not on filedocumented in this encounter Additional Health Concerns Assessment Noted Time PHQ-9 Depression Total Score: 0 04/11/20 23 10:05 AM EDT documented as of this encounter Care Teams Facility Examiner Relationship Specialty Start Date End Date Name, MD Beltran [address] [place] [phone] PCP - General Family Medicine 12/05/15 documented as of this encounter
--- OUTSIDE RECORDS SUMMARY | 2025-05-31 14:14 | XMS_ITS | Clinical Summary ---
Author Organization [employer] Address 75 [facility] 7t [place] [address] Care Team Providers Care Podiatry Professor Name Role Phone Name, Beltran LEACH Primary Care Provider [phone] Allergies Active Allergy Reactions Criticality Noted Date [...] miscIndications: Type 2 diabetes mellitus with hyperglycemia (HCC) TEST BLOOD SUGAR THREE TIMES DAILY 200 [...] y due to type 2 diabetes mellitus (HCC) 1 each by Other route 3 times daily. 100 each 024 Active pen needle 32G x 4 mm misc Use four times per day with insulinInject under the skin. Use four times per day with insulin 100 each 024 Active metoprolol succinate XL (Toprol-XL) 25 MG 24 hr tablet Take 25 mg by mouth Once per day. 024 Active chlorhexidine (Peridex) 0.12 % solution Swish 15 mL morning and night for 1 minute. Spit, do not swallow. Do not eat or drink for 30 minutes following use. 473 mL 024 Active Trulicity 0.75 MG/0.5ML solution auto-injector INJECT [...] polyneuropathy associated with type 2 diabetes mellitus (HCC) Take 1 tablet (81 mg) by mouth Once per day. 90 tablet 3 025 Active Combivent Respimat 20-100 MCG/ACT inhaler INHALE 1 PUFF BY MOUTH EVERY 6 HOURS NEEDED FOR WHEEZING, RINSE MOUTH AFTER USING. 4 g 1 025 Active glucose blood (FREESTYLE LITE) test stripIndications :Type 2 diabetes mellitus with hyperglycemia (HCC) USE DIRECTED TO TEST BLOOD SUGAR THREE TIMES DAILY DIRECTED 100 strip 5 07/16/2 025 Active gabapentin (Neurontin) 800 MG tabletIndication s:Cervical radiculopathy TAKE 1 TABLET BY MOUTH THREE TIMES DAILY 90 tablet 3 Active insulin aspart FlexPen (NovoLOG) 100 UNIT/ML pen INJECT 10 UNITS SUBCUTANEOUSLY EVERY MORNING, 15 UNITS WITH LUNCH, AND 20 UNITS WITH DINNER 15 mL 3 Active Continuous Glucose Career Developer (FreeStyle Catr[place]ita 3 [place]) deviceIndication s:Type 2 diabetes mellitus with unspecified complications (HCC) 1 each Once per day. Use as directed for CGM 1 each Active Continuous Glucose Sensor (FreeStyle Catrachita 3 Plus Sensor) miscIndications: Type 2 diabetes mellitus with unspecified complications (HCC) 1 each every 15 days. Apply 1 every 15 days as directed for CGM 2 each Active glucose blood (FreeStyle Precision Osmar Test) test stripIndications :Type 2 diabetes mellitus with unspecified complications (HCC) Use to test blood sugar 3 times daily in case of CGM failure or extremes of BG 100 each 2025 Active atorvastatin (Lipitor) 40 MG tablet Take 1 tablet (40 mg) by mouth at bedtime. 90 tablet Active losartan (Cozaar) 50 MG tablet Take 1 tablet (50 mg) by mouth Once per day. 30 tablet 2025 Active pantoprazole (Protonix) 40 MG EC tablet Take 1 tablet (40 mg) by mouth before breakfast. Do not crush, chew, or split. 30 tablet 1 2025 Active sucralfate (Carafate) 1 g tablet Take 1 tablet (1 g) by mouth before breakfast, before lunch, before evening meal, and at bedtime for 10 days. 40 tablet 2024 Active acetaminophen (Tylenol Extra Strength) 500 MG tablet Take 2 tablets (1,000 mg) by mouth every 8 (eight) hours if needed for mild pain for up to 10 days. 30 tablet 2024 Active ondansetron (Zofran) 4 MG tablet Take 2 tablets (8 mg) by mouth every 8 (eight) hours if needed for nausea or vomiting for up to 7 days. 20 tablet 025 2024 Active losartan (Cozaar) 50 MG tablet Take 1 tablet (50 mg) by mouth in the morning. 30 tablet 11 024 2024 Discontinued(R eorder (will not trigger notification to Pharmacy)) omeprazole (PriLOSEC) [address] Champion ns:Type 2 diabetes mellitus without complication, with long-term current use of insulin (HCC) Take 1 capsule (20 mg) by mouth Once per day. Take 1 capsul by oral route every day 30 minutes to 1 hour before a meal 30 capsule 2 025 2024 Discontinued(I neffective) atorvastatin (Lipitor) 40 MG tablet TAKE 1 TABLET BY MOUTH EVERY DAY AT BEDTIME 90 tablet 1 025 2024 Discontinued(R eorder (will not trigger notification to Pharmacy)) insulin aspart FlexPen (NovoLOG) 100 UNIT/ML pen INJECT 10 UNITS SUBCUTANEOUSLY EVERY MORNING, 15 UNITS WITH LUNCH, AND 20 UNITS WITH DINNER 15 mL 3 025 2024 Discontinued polyethylene glycol, PEG, 3350 (MiraLax) 17 GM/SCOOP powderIndication s:Constipation, unspecified constipation type Take 17 g by mouth Once per day for 3 days. 527 g 2 025 2024 Active Problems Problem Noted Date Diagnosed Date Acute vomiting 05/31/2025 Assessment & Plan (05/31/2025 1:12 PM EDT): Orders: Comprehensive Metabolic Panel; Future CBC auto differential; Future Amylase; Future Lipase; Future Referral to Gastroenterology; Future Helicobacter pylori, Urea Breath Test; Future Class 2 severe obesity with serious comorbidity and body mass index (BMI) of 35.0 to 35.9 in adult 05/31/2025 Assessment & Plan (05/31/2025 1:12 PM EDT): Orders: Referral to Gastroenterology; Future Periodontal disease 09/08/2024 Dental caries 09/08/2024 Dental [...] Encounters Date Type Department Care Team Description 05/31/2025 1:00 PM EDT Office Visit [facility] [address] [place] [phone] Jana Alamo NP Acute vomiting (Primary Dx); Class 2 severe obesity with serious comorbidity and body mass index (BMI) of 35.0 to 35.9 in adult, unspecified obesity type ([facility]) 05/31/2025 Travel 05/26/2025 Telephone [facility] [address] [place] [phone] NameBeltran MD Appointment 05/24/2025 Telephone [facility] [address] [place] [address] [phone] Rebecca Burnett, JOE 05/23/2025 Telephone [facility] [address] [place] [phone] Beltran Ramirez MD [facility] 05/19/2025 Telephone [facility] [address] [place] [address] [phone] Beltran Ramirez MD Durable Medical Equipment 05/18/2025 9:30 AM EDT Office Visit [facility] [address] [place] [phone] NameBeltran MD Type 2 diabetes mellitus with unspecified complications ([facility]/HCC) (Primary Dx); Tobacco use disorder; Screen for colon cancer; Constipation, unspecified constipation type; Encounter for screening mammogram for malignant neoplasm of breast; Vaccine refused by patient 05/18/2025 Orders Only [facility] [address] [place] [address] Beltran Ramirez MD 05/18/2025 Travel 05/17/2025 Telephone [facility] [address] [place] [phone] Enrique Sims MA CHART PREP 05/14/2025 Refill [facility] [address] [place] [phone] Beltran Ramirez MD 04/08/2025 Refill [facility] [address] [place] [phone] Beltran Ramirez MD Cervical radiculopathy 03/16/2025 Refill [facility] [address] [place] [address] Beltran Ramirez MD Type 2 diabetes mellitus with hyperglycemia ([facility]/HCC) 03/13/2025 Refill [facility] [address] [place] [address] NameBeltran MD from Last 3 Months Immunizations Immunization Administration [...] Mass Index 35.02 05/31/2025 11:54 AM EDT Plan of Treatment Upcoming Encounters Date Type Department Care Team (Late st Contact Info) Description 06/01/2025 11:00 AM EDT Clinical Support [facility] [address] [place] [address] 06/15/2025 10:30 AM EDT Medication Management [facility] [address] [place] [address] Amina Singh, PharmD [address] [place] [address] Health Maintenance Due Date Last Done Comments [...] - Risk 60-74 years 1-dose series) 2024 DTaP/Tdap/Td Vaccines (2 - Td or Tdap) 10/11/2024 10/11/2014, 10/06/2000 COVID-19 Vaccine ( season) 2025 10/25/2021, 02/02/2021, 01/05/2021 Influenza Vaccine (#1) 2025 4, 08/18/2013, 06/22/2003 Diabetes: Hemoglobin A1C 08/17/2025 025, 10/29/2024, 12/26/2023, Additional history exists SDOH Screening 10/20/2025 10/20/2024 Lipid Panel 05/17/2026 05/17/2025, 07/02, 07/30/2021, Additional history exists Diabetes: Foot Exam 05/18/2026 05/18/2025, 05/18/2025, 05/18/2025, Additional history exists Diabetes: Urine Protein Screening 05/18/2026 05/18/2025, 07/11/2023, 07/30/2021 Tobacco Screening 05/18/2026 05/18/2025 HIB Vaccines Aged [...] 2 diabetes mellitus with unspecified complications (CMS/HCC) ALBUMIN, RANDOM URINE W/CREATININE Routine 05/18/2025 8:49 AM EDT LIPID PANEL, STANDARD Routine 05/17/2025 11:55 AM EDT Type 2 diabetes mellitus without complication, with long-term current use of insulin ([facility]) Primary hypertension COMPREHENSIVE METABOLIC PANEL Routine 05/17/2025 11:55 AM EDT Type 2 diabetes mellitus without complication, with long-term current use of insulin ([facility]) Primary hypertension CBC WITH AUTO DIFFERENTIAL Routine 05/17/2025 11:55 AM EDT Type 2 diabetes mellitus without complication, with long-term current use of insulin ([facility]) Primary hypertension MAMMOGRAM GENERIC Routine 12/13/2021 8:3 9 AM [...] Result * (ABNORMAL) Albumin, Random Urine W/Creatinine (05/18/2025 8:49 AM EDT) Creatinine, Urine 410.06 mg/dL [facility] Microalbumin Urine 150.0 mg/L [facility] Microalbum Creatinine Ratio Ur 36.5(H) <30 ug/mg cr [facility] Comment:Albumin/Creatinine R atio Reference Ranges: Normal: < 30 ug/mg creatinine Microalbuminuria: 30 - 300 ug/mg creatinineClinical Albuminuria: > 300 ug/mg creatinine 05/18/2025 8:49 AM EDT 05/18/2025 11:14 AM EDT us Beltran Name MD LAB URINE ORDERABLES Final Resul t Performing Organization Address City/State/[facility] Co de Phone Number [facility] [address] [place] [phone] * CBC auto differential (05/17/2025 11:55 AM EDT) Pathologist [facility] [place] White Blood Count 9.7 4.8 - 10.8 X10*3/uL [facility] Red Blood Count 4.56 4.20 - 5.50 X10*6/uL [facility] Hemoglobin 13.7 12.0 - 16.0 g/dl [facility] Hematocrit 40.5 37.0 - 47.0 % [facility] Mean Corpuscular Volume 88.8 80.0 - 98.0 fL [facility] Mean Corpuscular Hemoglobin 30.0 27.0 - 33.0 pg [facility] Mean Corpuscular HGB Conc 33.8 31.0 - 35.0 g/dl [facility] Red Cell Distribution Width 12.4 11.0 - 16.0 % [facility] Platelet Count 249 160 - 400 X10*3/uL [facility] Mean Platelet Volume 11.2 9.4 - 12.3 fL [facility] Neutrophils Percent Auto 64.8 45 - 73 % [facility] Imm Gran Pct Auto 0.3 0.0 - 0.4 % [facility] Lymphocytes Percent Auto 25.4 20 - 40 % [facility] Monocytes Percent Auto 5.2 2 - 11 % [facility] Eosinophils Percent Auto 4.0 0 - 4 % [facility] Basophils Percent Auto 0.3 0 - 2 % [facility] NRBC Pct Auto 0.0 0.0 - 0.2 /100WBC [facility] Neutrophils Absolute Auto 6.3 2.0 - 8.3 x10*3/uL [facility] Imm Gran Abs Auto 0.03 0.00 - 0.03 X10*3/uL [facility] Lymphocytes Absolute Auto 2.5 1.2 - 4.9 X10*3/uL [facility] Monocytes Absolute Auto 0.5 0.1 - 1.2 X10*3/uL [facility] Eosinophils Absolute Auto 0.4 0.0 - 0.4 X10*3/uL [facility] Basophils Absolute Auto 0.0 0.0 - 0.2 X10*3/uL [facility] NRBC Abs Auto 0.000 0.0 - 0.012 X10*3/uL [facility] Blood Venous blood specimen / Unknown 05/17/2025 11:55 AM EDT 05/17/2025 1:13 PM EDT us Beltran Name LAB BLOOD ORDERABLES Final Resul t [facility] [address] [place], [place] [phone] * (ABNORMAL) Lipid Panel, Standard (05/17/2025 11:55 AM EDT) Triglycerides 133 <150 mg/dL [facility] Comment:Desirable Triglyceri de: less than 150 mg/dLBorderline High Triglyceride 150-199 mg/dLHigh Triglyceride: 200-499 mg/dLVery High Triglyceride: greater than or equal to 5OO mg/dL Cholesterol 139 <200 mg/dL [facility] Comment:Desirable Cholestero l: less than 200 mg/dLBorderline High Cholesterol: 200-239 mg/dLHigh Cholesterol: greater than 239 mg/dL LDL Cholesterol Calculated 84 <100 mg/dL [facility] Comment:Desirable LDL: less than 100 mg/dLNear Optimal/Above Optimal LDL: 110- 129 mg/dLBorderline High LDL: 130-159 mg/dLHigh LDL: 160-189 mg/dLVery High LDL: greater than or equal to 190 mg/dL HDL Cholesterol 29(L) >40 mg/dL [facility] Comment:Desirable HDL: great er than 40 mg/dL Note: This HDL assay may give artificially low results in patients with liver disease. Blood Venous blood specimen / Unknown 05/17/2025 11:55 AM EDT 05/17/2025 1:22 PM EDT us Beltran Name LAB BLOOD ORDERABLES Final Resul t [facility] [address] [place] [phone] * (ABNORMAL) Comprehensive Metabolic Panel (05/17/2025 11:55 AM EDT) Sodium 136 135 - 145 mmol/L [facility] Potassium 4.4 3.3 - 5.1 mmol/L [facility] Chloride 102 96 - 108 mmol/L [facility] Carbon Dioxide 28 22 - 29 mmol/L [facility] Anion Gap 10(L) 12 - 20 [facility] Urea Nitrogen (BUN) 18(H) 9 - 16 mg/dL [facility] Creatinine, Serum 0.78 0.5 - 1.4 mg/dL [facility] Estimated Glomerular Filt Rate >60 [facility] Comment:Chronic Kidney Disea se: Estimated GFR < 60 mL/min/1.00l4Waatlf Kidney Disease: Estimated GFR < 15 mL/min/1.73m2 Glucose 271(H) 60 - 115 mg/dL [facility] Calcium 8.8 8.4 - 10.2 mg/dL [facility] Bilirubin, Total 0.5 0.0 - 1.0 mg/dL [facility] Aspartate Amino Transferase 23 5 - 31 U/L [facility] Alanine Aminotransferase 16 0 - 31 U/L [facility] Total Protein 7.3 6.5 - 8.0 g/dL [facility] Albumin Level 3.9 3.5 - 5.0 g/dL [facility] Alkaline Phosphatase 160(H) 39 - 117 U/L [facility] Blood Venous blood specimen / Unknown 05/17/2025 11:55 AM EDT 05/17/2025 1:22 PM EDT Beltran Ramirez MD LAB BLOOD ORDERABLES Final Resul t [facility] [address] [place] [phone] [phone] * Mammography Report 1 (12/13/2021 8:39 [...] Relevant to Health Maintenance Insurance [facility] STANDARD MEDICARE [address] [place] [id number] DENTAL-[facility] MEDICAID STAND ADULT [address] [place] [address] [phone] [place] [address] [id number] [address] [place] [phone] Care Teams Podiatry Professor Relationship Specialty Start Date End Date Name, MD Beltran [address] [place] [address] PCP - General Family Medicine 12/05/15
--- OUTSIDE RECORDS SUMMARY | 2025-05-31 14:14 | XMS_ITS | Encounter Summary ---
Author Organization [employer] Address 75 [facility] 7t [place] [address] Care Team Providers Care Spray Worker Name Role Phone Name, Beltran LEACH Primary Care Provider Reason for Visit * Reason Comments Med Refill Encounter Details Date Type Department Care Team ([facility] st Contact Info) Description 06/27/2023 Refill [facility] [address] [place], [place] [phone] Name, MD Beltran [address] [place] [address] Social History Tobacco Use Types Packs/Day Years [...] Description 06/01/2025 11:00 AM EDT Clinical Support [address] [address] 06/15/2025 10:30 AM EDT Medication Management [address] [address] Amina Singh, PharmD [address] [place] [phone] documented as of this encounter Visit Diagnoses Not on filedocumented in this encounter Additional Health Concerns Assessment Noted Time PHQ-9 Depression Total Score: 0 04/11/20 23 10:05 AM EDT documented as of this encounter Care Teams Spray Worker Relationship Specialty Start Date End Date Name, MD Beltran [address] [place] [phone] PCP - General Family Medicine 12/05/15 documented as of this encounter
--- OUTSIDE RECORDS SUMMARY | 2025-05-31 14:14 | XMS_ITS | Encounter Summary ---
Author Organization [employer] Address 75 [facility] 7t [place] [address] Care Team Providers Care Draw In Hand Name Role Phone Name, Beltran LEACH Primary Care Provider [phone] Reason for Visit * Reason Onset Date Comments Nurse Triage 08/20/2023 Encounter Details Date Type Department Care Team ([facility] st Contact Info) Description 08/20/2023 Telephone [facility] [address] [place], [place] [phone] Name, MD Beltran [address] [place] [address] Nurse Triage Social History Tobacco Use Types [...] 09/24/23. Pt is advised to come to [facility] to see provider and have BP and [...] accepted this outcome Please contact pt @ [phone] documented in this encounter Plan of Treatment Upcoming Encounters Date Type Department Care Team (Late st Contact Info) Description 06/01/2025 11:00 AM EDT Clinical Support [address] [address] 06/15/2025 10:30 AM EDT Medication Management [address] [address] Amina Singh, PharmD [address] [place] [phone] documented as of this encounter Visit Diagnoses Not on filedocumented in this encounter Additional Health Concerns Assessment Noted Time PHQ-9 Depression Total Score: 0 04/11/20 23 10:05 AM EDT documented as of this encounter Care Teams Draw In Hand Relationship Specialty Start Date End Date Name, MD Beltran [address] [place] [phone] PCP - General Family Medicine 12/05/15 documented as of this encounter
--- OUTSIDE RECORDS SUMMARY | 2025-05-31 14:14 | XMS_ITS | Encounter Summary ---
Author Organization [employer] Address 75 [facility] 7t [place] [address] Care Team Providers Care Final Coat Sprayer Name Role Phone Name, Beltarn LEACH Primary Care Provider [phone] Reason for Visit * Reason Comments Med Refill Encounter Details Date Type Department Care Team ([facility] Contact Info) Description 10/02/2023 Refill [facility] [address] [place], [place] [phone] Yoni Ann MD [address] [place] [address] Social History Tobacco Use Types Packs/Day Years [...] Description 06/01/2025 11:00 AM EDT Clinical Support [facility] [address] [place] [phone] 06/15/2025 10:30 AM EDT Medication Management [address] [address] Amina Singh, PharmD [address] [place] [address] documented as of this encounter Visit Diagnoses Not on filedocumented in this encounter Additional Health Concerns Assessment Noted Time PHQ-9 Depression Total Score: 0 04/11/20 23 10:05 AM EDT documented as of this encounter Care Teams Final Coat Sprayer Relationship Specialty Start Date End Date Name, MD Beltran [address] [place] [phone] PCP - General Family Medicine 12/05/15 documented as of this encounter
--- OUTSIDE RECORDS SUMMARY | 2025-05-31 14:14 | XMS_ITS | Encounter Summary ---
Author Organization [employer] Address 75 [facility] 7t [place] [address] Care Team Providers Care Manager Investment Name Role Phone Name, Beltran LEACH Primary Care Provider [phone] Reason for Visit * Reason Onset Date Comments Reschedule 11/26/2023 Encounter Details Date Type Department Care Team ([facility] Contact Info) Description 11/26/2023 Telephone [facility] [address] [place], [place] [phone] Name, MD Beltran [address] [place] [address] Reschedule Social History Tobacco Use Types Packs/Day [...] requesting to reschedule 11/23 follow up appointment. Transportation Modeler attempted to schedule but noavailability. Please contact pt at [phone] documented in this encounter Plan of Treatment Upcoming Encounters Date Type Department Care Team (Late st Contact Info) Description 06/01/2025 11:00 AM EDT Clinical Support [address] [address] 06/15/2025 10:30 AM EDT Medication Management [facility] [address] [place] [address] Amina Singh, PharmD [address] [place] [address] documented as of this encounter Visit Diagnoses Not on filedocumented in this encounter Additional Health Concerns Assessment Noted Time PHQ-9 Depression Total Score: 0 04/11/20 23 10:05 AM EDT documented as of this encounter Care Teams Manager Investment Relationship Specialty Start Date End Date Name, MD Beltran [address] [place] [address] PCP - General Family Medicine 12/05/15 documented as of this encounter
--- OUTSIDE RECORDS SUMMARY | 2025-05-31 14:14 | XMS_ITS | Encounter Summary ---
Author Organization [employer] Address 75 [facility] 7t [place] [address] Care Team Providers Care Salesperson Fashion Accessories Name Role Phone Name, Beltran LEACH Primary Care Provider Reason for Visit * Reason Comments Med Refill Encounter Details Date Type Department Care Team ([facility] Contact Info) Description 02/19/2024 Refill [facility] [address] [place], [place] [phone] Name, MD Beltran [address] [place] [address] Cervical radiculopathy Social History Tobacco Use Types [...] Description 06/01/2025 11:00 AM EDT Clinical Support [address] [address] 06/15/2025 10:30 AM EDT Medication Management [address] [address] Amina Singh, PharmD [address] [place] [address] documented as of this encounter Visit Diagnoses Diagnosis Cervical radiculopathy Brachial neuritis or radiculitis nos documented in this encounter Additional Health Concerns Assessment Noted Time PHQ-9 Depression Total Score: 0 04/11/20 23 10:05 AM EDT documented as of this encounter Care Teams Salesperson Fashion Accessories Relationship Specialty Start Date End Date Name, MD Beltran [address] [place] [address] PCP - General Family Medicine 12/05/15 documented as of this encounter
[2025-05-31 16:26] LABS: MANUAL DIFF FLAG NO
[2025-05-31 16:46] LABS: Hematocrit 41.0 % (37.0-47.0); Hemoglobin 13.7 g/dl (12.0-16.0); Imm Gran Abs Auto 0.04 X10*3/uL (0.00-0.03); Imm Gran Pct Auto 0.4 % (0.0-0.4); Lymphocytes Absolute Auto 3.3 X10*3/uL (1.2-4.9); Mean Corpuscular HGB Conc 33.4 g/dl (31.0-35.0); Mean Corpuscular Hemoglobin 30.3 pg (27.0-33.0); Mean Corpuscular Volume 90.7 fL (80.0-98.0); NRBC Abs Auto 0.000 X10*3/uL (0.0-0.012); NRBC Pct Auto 0.0 /100WBC (0.0-0.2); Platelet Count 243 X10*3/uL (160-400); Red Blood Count 4.52 X10*6/uL (4.20-5.50); White Blood Count 10.8 X10*3/uL (4.8-10.8)
[2025-05-31 17:11] LABS: Alanine Aminotransferase 10 U/L (0-31); Albumin Level 4.1 g/dL (3.5-5.0); Alkaline Phosphatase 150 U/L (39-117); Amylase 59 U/L (28-100); Anion Gap 13 (12-20); Aspartate Amino Transferase 27 U/L (5-31); Blood Urea Nitrogen 23 mg/dL (9-16); Calcium 9.2 mg/dL (8.4-10.2); Carbon Dioxide 30 mmol/L (22-29); Chloride 101 mmol/L (96-108); Estimated Glomerular Filt Rate 57; Lipase 7 U/L (8-78); Potassium 4.1 mmol/L (3.3-5.1); Sodium 140 mmol/L (135-145); Total Protein 7.9 g/dL (6.5-8.0)
== END 2025-05-31 13:02 | disposition home or self-care (01) ==
LOC: HO.HHCL 13:01
PROVIDERS: PCP Internal Medicine Geriatric Medicine; Visit Provider Nurse Practitioner Family
DX: R11.10 Vomiting, unspecified (principal)
CPT/HCPCS: 36415; 80053; 82150; 83013; 83690; 85025